=== PATIENT | female | born 1990 | race African-American/Black ===

== ENCOUNTER 2017-01-14 17:05 | Emergency (ER) | payer OTHER ==
[~2017-01-14] VITALS: Ht 154.9 cm; Wt 51.7 kg
[~2017-01-14 17:05] MED LIST: ALBU8.5H3 INH; FLUT1DIS3 IH
--- NOTE | 2017-01-14 17:47 | ED.ADGEN ---
Past History Past Medical History: Asthma Past Surgical History: Alcohol Use: None Drug Use: None Adult General Chief Complaint Chief Complaint " I bleeding again and having more pain.. and I don't feel the baby moving today..."..." I am due June 18.. I am 18 weeks by US .. the one I had last week at [facility].. I had two US here.. and one a [facility] and the one at [place].. for the pain and bleeding episodes.. " I just don't feel the baby moving....".." I ve been sick with the flu...." HPI HPI Patient is a 26 year old female who presents with above hx and complaints of vaginal bleeding and cramping. Pt. states bleeding is more spotting, less than a regular period. Pt. G 4, Term 3 by C sections. Has seen a OB at [place] in the past. No history of trauma. No history of travel. No history of bad food. No history of specific ill contacts other than her children who she got the influenza 2 weeks ago. Patient does still smoke marijuana. Patient has a history of asthma.. Life time sex partners x 2 . No history of STDs. Review of Systems Review of Systems Constitutional: Denies fever or chills [] Eyes: Denies change in visual acuity, redness, or eye pain [] HENT: Denies nasal congestion or sore throat [] Respiratory: Denies cough or shortness of breath [] Cardiovascular: No additional information not addressed in HPI [] GI: Complaints of lower abdominal pain and cramping, nausea,. Denies vomiting, bloody stools or diarrhea [] : Denies dysuria or hematuria. Complains of spotting Musculoskeletal: Denies back pain or joint pain [] Integument: Denies rash or skin lesions [] Neurologic: Denies headache, focal weakness or sensory changes [] Endocrine: Denies polyuria or polydipsia [] Family History Family History Noncontributory Current Medications Current Medications Current Medications Medications (Trade) Dose Ordered Sig/Clayton Start Time Stop Time Status Last Admin Dose Admin Lactated Ringer's (Iv Lactated Ringers) 1,000 ml @ 1,000 mls/hr Q1H 01/14/17 19:00 01/14/17 21:26 DC 01/14/17 19:33 1,000 MLS/HR Ondansetron HCl (Zofran) 4 mg 1X ONCE 01/14/17 19:00 01/14/17 19:01 DC 01/14/17 19:31 4 MG Allergies Allergies Allergies Coded Allergies Type Severity Reaction Last Updated Verified codeine Allergy Unknown Nausea and Vomiting 06/22/16 Yes Physical Exam Physical Exam Constitutional: Well developed, well nourished, mild emotional distress, non- toxic appearance. [] HENT: Normocephalic, atraumatic, bilateral external ears normal, oropharynx moist, no oral exudates, nose normal. [] Eyes: PERRLA, EOMI, conjunctiva normal, no discharge. [] Neck: Normal range of motion, no tenderness, supple, no stridor. [] Cardiovascular:Heart rate regular rhythm, no murmur [] Lungs & Thorax: Bilateral breath sounds equal with scattered wheezes auscultation [] Abdomen: Bowel sounds normal, soft, mild left lower quadrant tenderness, no masses, no pulsatile masses. Gravid. No rebound. Os is closed. No obvious bleeding. heart rate approximately 160. Skin: Warm, dry, no erythema, no rash. Tattoos. Back: No tenderness, no CVA tenderness. [] Extremities: No tenderness, no cyanosis, no clubbing, ROM intact, no edema. [] Neurologic: Alert and oriented X 3, normal motor function, normal sensory function, no focal deficits noted. [] Psychologic: Affect anxious, judgement normal, mood normal. [] Current Patient Data Vital Signs Vital Signs Date Time Temp Pulse Resp B/P Pulse Ox O2 Delivery O2 Flow Rate FiO2 01/14/17 20:10 95 20 106/66 99 Room Air 01/14/17 17:19 98.1 Lab Results Laboratory Tests Test 01/14/17 18:35 01/14/17 18:38 01/14/17 19:07 Urine Collection Type Unknown Urine Color Yellow Urine Clarity Hazy Urine pH 7.5 Urine Specific Crystal 1.020 Urine Protein Neg (NEG-TRACE) Urine Glucose (UA) Negmg/dL (NEG) Urine Ketones (Stick) 40mg/dL (NEG) Urine Blood Trace (NEG) Urine Nitrite Neg (NEG) Urine Bilirubin Neg (NEG) Urine Urobilinogen Dipstick 0.2mg/dL (0.2 mg/dL) Urine Leukocyte Esterase Neg (NEG) Urine RBC 0/HPF (0-2) Urine WBC Occ/HPF (0-4) Urine Squamous Epithelial Cells Occ/LPF Urine Amorphous Sediment Present/HPF Urine Bacteria Few/HPF (0-FEW) Urine Mucus Slight/LPF Urine Opiates Screen Neg (NEG) Urine Methadone Screen Neg (NEG) Urine Barbiturates Neg (NEG) Urine Phencyclidine Screen Neg (NEG) Urine Amphetamine/Methamphetamine Neg (NEG) Urine Benzodiazepines Screen Neg (NEG) Urine Cocaine Screen Neg (NEG) Urine Cannabinoids Screen Pos (NEG) Urine Ethyl Alcohol Neg (NEG) White Blood Count 8.9x10^3/uL (4.0-11.0) Red Blood Count 4.21x10^6/uL (3.50-5.40) Hemoglobin 12.4g/dL (12.0-15.5) Hematocrit 36.7% (36.0-47.0) Mean Corpuscular Volume 87fL (79-100) Mean Corpuscular Hemoglobin 29pg (25-35) Mean Corpuscular Hemoglobin Concent 34g/dL (31-37) Red Cell Distribution Width 13.3% (11.5-14.5) Platelet Count 295x10^3/uL (140-400) Neutrophils (%) (Auto) 56% (31-73) Lymphocytes (%) (Auto) 29% (24-48) Monocytes (%) (Auto) 9% (0-9) Eosinophils (%) (Auto) 4% (0-3) H Basophils (%) (Auto) 1% (0-3) Neutrophils # (Auto) 5.0x10^3uL (1.8-7.7) Lymphocytes # (Auto) 2.6x10^3/uL (1.0-4.8) Monocytes # (Auto) 0.8x10^3/uL (0.0-1.1) Eosinophils # (Auto) 0.4x10^3/uL (0.0-0.7) Basophils # (Auto) 0.1x10^3/uL (0.0-0.2) Prothrombin Time < 9.4SEC (9.4-11.4) L Prothrombin Time INR 0.9 (0.9-1.1) PTT 27SEC (23-33) Maternal Serum HCG Beta Subunit 40422nTN/mL (0-6) H Sodium Level 136mmol/L (136-145) Potassium Level 3.7mmol/L (3.5-5.1) Chloride Level 100mmol/L (98-107) Carbon Dioxide Level 28mmol/L (21-32) Anion Gap 8 (6-14) Blood Urea Nitrogen 7mg/dL (7-20) Creatinine 0.6mg/dL (0.6-1.0) Estimated GFR (Cockcroft-Gault) 145.1 Glucose Level 73mg/dL (70-99) Calcium Level 8.9mg/dL (8.5-10.1) Total Bilirubin 0.3mg/dL (0.2-1.0) Direct Bilirubin 0.1mg/dL (0.0-0.2) Aspartate Amino Transferase (AST) 17U/L (15-37) Alanine Aminotransferase (ALT) 24U/L (14-59) Alkaline Phosphatase 85U/L (46-116) Total Protein 7.4g/dL (6.4-8.2) Albumin 2.8g/dL (3.4-5.0) L Microbiology 01/14/17 Wet Prep - Final, Complete Microbiology 01/14/17 Wet Prep - Final, Complete EKG EKG [] Radiology/Procedures Radiology/Procedures Ultrasound shows a breech presentation of 17 week 3 day gestational age live IUP. No gross abnormalities appreciated. heart rate at approximately 162. Placenta is anterior. Amniotic fluid volume and appropriate. See formal report when available. [] Course & Med Decision Making Course & Med Decision Making Pertinent Labs and Imaging studies reviewed. (See chart for details) Still awaiting US with results and lab results. Tech. has not arrived yet. Lab advise GC and Chlamydia was canceled. - Lab Can not tell me who canceled the order- It was canceled under my name? Re -ordered 2056. Patient follow-up all labs that are pending. Patient return if any concerns. Patient continue pad counts. Patient encouraged follow-up with me patient encouraged to take vitamins. Patient must follow-up with her OB. [] Final Impression Final Impression 1. Threaten 2. Bacterial Vaginosis- + Clue cells 3. Blood Type B+ 4. IUP Problems: Dragon Disclaimer Claire Disclaimer This electronic medical record was generated, in whole or in part, using a voice recognition dictation system. SHORTY CESPEDES MD Jan 14, 2017 17:47
[2017-01-14] MEDS ORDERED: IV RINGERS SOLUTION,LACTATED 1,000 ML IV SCH (19:00)
[2017-01-14] MEDS ORDERED: ONDANSETRON PF 4 MG/2 ML VIAL. IV ONE (19:00)
[2017-01-14 19:34] LABS: BASO # 0.1 x10^3/uL (0.0-0.2); BASO % 1 % (0-3); EOS # 0.4 x10^3/uL (0.0-0.7); EOS % 4 % (0-3); HEMATOCRIT 36.7 % (36.0-47.0); HEMOGLOBIN 12.4 g/dL (12.0-15.5); LYMPH # 2.6 x10^3/uL (1.0-4.8); LYMPH % 29 % (24-48); MEAN CORPUSCULAR HEMOGLOBIN 29 pg (25-35); MEAN CORPUSCULAR HGB CONC 34 g/dL (31-37); MEAN CORPUSCULAR VOLUME 87 fL (79-100); MONO # 0.8 x10^3/uL (0.0-1.1); MONO % 9 % (0-9); NEUT % 56 % (31-73); PLATELET COUNT 295 x10^3/uL (140-400); RED BLOOD COUNT 4.21 x10^6/uL (3.50-5.40); RED CELL DISTRIBUTION WIDTH 13.3 % (11.5-14.5); WHITE BLOOD COUNT 8.9 x10^3/uL (4.0-11.0)
[2017-01-14 19:37] LABS: BILIRUBIN,URINE NEG (NEG); CLARITY,URINE HAZY; COLOR,URINE YELLOW; GLUCOSE,URINE NEG (NEG)
[2017-01-14 19:38] LABS: BACTERIA,URINE FEW /HPF (0-FEW); NITRITE,URINE NEG (NEG); RBC,URINE 0 /HPF (0-2); SQUAMOUS EPITHELIAL CELL,UR OCC /LPF; UROBILINOGEN,URINE 0.2 mg/dL (0.2 mg/dL); WBC,URINE OCC /HPF (0-4)
[2017-01-14 19:39] LABS: AMORPHOUS SEDIMENT,UR PRESENT /HPF
[2017-01-14 19:54] LABS: ALBUMIN 2.8 g/dL (3.4-5.0); CALCIUM 8.9 mg/dL (8.5-10.1); CREATININE 0.6 mg/dL (0.6-1.0); DIRECT BILIRUBIN 0.1 mg/dL (0.0-0.2); GFR 145.1; POTASSIUM 3.7 mmol/L (3.5-5.1); TOTAL BILIRUBIN 0.3 mg/dL (0.2-1.0); TOTAL PROTEIN 7.4 g/dL (6.4-8.2)
[2017-01-14 20:10] VITALS: BP 106/66
--- NOTE | 2017-01-14 20:45 | RAD ---
Ultrasound Ob limited Indication: Bleeding. There is a single live IUP approximately 17 weeks 3 days gestational age. Heart rate was recorded at 162 beats per minute. Trace fluid is noted in the cervix. The placenta is anterior. The amniotic fluid volume appears appropriate. No gross abnormalities are seen. The fetus is in a breech presentation. Impression: Single live IUP 17 weeks 3 days gestational age. No complicating features are detected. Electronically signed by: Cali Burton MD (Jan 14, 2017 20:44:26)
[2017-01-14 22:33] LABS: AMPHETAMINE/METHAMPHETAMINE NEG (NEG); BARBITURATES NEG (NEG); BENZODIAZEPINES NEG (NEG); CANNABINOIDS POS (NEG); COCAINE NEG (NEG); METHADONE NEG (NEG); OPIATES NEG (NEG); PHENCYCLIDINE NEG (NEG)
[2017-01-15 20:21] LABS: HCV ANTIBODY 0.1 s/co ratio (0.0-0.9); HEP A IGM ABDY Negative (Negative)
[2017-01-16 15:08] LABS: CHLAMYDIA PROBE Negative (Negative)
== END 2017-01-14 21:22 | disposition home or self-care (01) ==
LOC: ER 17:05
DX: O20.0 Threatened abortion (principal); N76.0 Acute vaginitis; J45.909 Unspecified asthma, uncomplicated; F12.10 Cannabis abuse, uncomplicated; Z3A.17 17 weeks gestation of pregnancy; Z88.6 Allergy status to analgesic agent
CPT/HCPCS: 36415; 76815; 80048; 80074; 80076; 80305; 81001; 84443; 84702; 85027; 85610; 85730; 86703; 86900; 86901; 87491; 87591; 96361; 96374; 99285; J2405; J7120; Q0111; G0481

== ENCOUNTER 2018-03-04 09:34 | Emergency (ER) | payer SELFPAY ==
[~2018-03-04] VITALS: Ht 154.9 cm; Wt 59.5 kg
[~2018-03-04 09:34] MED LIST changes: -ALBU8.5H3 INH; +ALBU8.5H8 INH
[2018-03-04] MEDS ORDERED: IPRATRPIUM/ALBUTEROL 0.5/2.5MG 3 ML NEBU. ONE (09:40)
[2018-03-04] MEDS ORDERED: IV NORMAL SALINE 1,000ML 1,000 ML IV SCH (09:43)
[2018-03-04] MEDS ORDERED: 0.9 % SODIUM CHLORIDE 10 ML DISP.SYRIN. IV ONE (09:45)
--- NOTE | 2018-03-04 09:54 | PHYS DOC ---
Past History Past Medical History: Asthma Past Surgical History: Alcohol Use: None Drug Use: None Adult General Chief Complaint Chief Complaint: SHORTNESS OF BREATH HPI HPI 27-year-old female patient with history of asthma states she has intermittent episodes of shortness of breath dry cough for the last 1 week that gradually getting worse with productive cough. Patient states she had posttussive nausea and vomiting and took 8 times inhaler today without improvement of her condition. Patient denies fever and chills, sick contact, diarrhea and urinary symptom, . Patient complaining of chest tightness and soreness during episodes of cough. Review of Systems Review of Systems Constitutional: Denies fever or chills [] Eyes: Denies change in visual acuity, redness, or eye pain [] HENT: Denies nasal congestion or sore throat [] Respiratory: Reports cough and shortness of breath [] Cardiovascular: No additional information not addressed in HPI [] GI: Denies abdominal pain, bloody stools or diarrhea , report nausea and vomiting[] : Denies dysuria or hematuria [] Musculoskeletal: Denies back pain or joint pain [] Integument: Denies rash or skin lesions [] Neurologic: Denies headache, focal weakness or sensory changes [] Endocrine: Denies polyuria or polydipsia [] All other systems were reviewed and found to be within normal limits, except as documented in this note. Current Medications Current Medications Current Medications Medications (Trade) Dose Ordered Sig/Clayton Start Time Stop Time Status Last Admin Dose Admin Albuterol/ Ipratropium (Duoneb) 3 ml 1X ONCE 03/04/18 10:10 03/04/18 10:11 Methylprednisolone Sodium Succinate (SOLU-Medrol 125MG VIAL) 125 mg 1X ONCE 03/04/18 09:45 03/04/18 09:46 UNV Sodium Chloride 1,000 ml @ 1,000 mls/hr Q1H 03/04/18 09:43 03/04/18 10:42 Sodium Chloride (Normal Saline Flush) 10 ml 1X ONCE 03/04/18 09:45 03/04/18 09:46 Allergies Allergies Allergies Coded Allergies Type Severity Reaction Last Updated Verified codeine Allergy Unknown Nausea and Vomiting 06/22/16 Yes Physical Exam Physical Exam Constitutional: Well developed, well nourished, moderate distress, non-toxic appearance. [] HENT: Normocephalic, atraumatic, bilateral external ears normal, oropharynx moist, no oral exudates, nose normal. [] Eyes: PERRLA, EOMI, conjunctiva normal, no discharge. [] Neck: Normal range of motion, no tenderness, supple, no stridor. [] Cardiovascular:Tachycardia, no murmur [] Lungs & Thorax: Mild respiratory distress with intercostal retraction and tachypnea, decrease of air movement in bilateral lung with wheezing Abdomen: Bowel sounds normal, soft, no tenderness, no masses, no pulsatile masses. [] Skin: Warm, dry, no erythema, no rash. [] Back: No tenderness, no CVA tenderness. [] Extremities: No tenderness, no cyanosis, no clubbing, ROM intact, no edema. [] Neurologic: Alert and oriented X 3, normal motor function, normal sensory function, no focal deficits noted. [] Psychologic: Affect normal, judgement normal, mood normal. [] EKG EKG [] Radiology/Procedures Radiology/Procedures [] [place] [address] IMAGING REPORT Signed PATIENT: KAVIN MOORE ACCOUNT: [id number] : 1990 LOCATION: ER AGE: 27 SEX: F EXAM STATUS: REG ER ORD. PHYSICIAN: SCOT HOFFMAN MD REASON: short of breath PROCEDURE: CHEST PA & LATERAL CHEST PA LATERAL History: SHORT OF BREATH Comparison: Two-view chest January 13, 2016. Findings: The cardiomediastinal silhouette is normal. Pulmonary vasculature is normal. The lungs are clear. No pleural effusion or pneumothorax is seen. There is no acute bone abnormality. IMPRESSION: No acute cardiopulmonary process. Electronically signed by: Jose Roberto Espinoza MD (03/04/2018 10:14 AM) [id number] DICTATED AND SIGNED BY: JOSE ROBERTO ESPINOZA MD DATE: 03/04/18 1011 CC: SCOT HOFFMAN MD; JR GARCIA Course & Med Decision Making Course & Med Decision Making Pertinent Labs and Imaging studies reviewed. (See chart for details) Evaluation of patient in ER showed 27-year-old female patient with history of asthma presented to ER via asthma exacerbation with acute distress. She treated with IV fluid, DuoNeb and Solu-Medrol and felt better. Labs and chest x-ray was unremarkable. Patient does not have a nebulizer at home but has prescription for nebulizer and instructed to get a nebulizer. She instructed to follow up with her primary care physician and return to ER if not getting better. [] Dragon Disclaimer Dragon Disclaimer This electronic medical record was generated, in whole or in part, using a voice recognition dictation system. Departure Departure: Impression: Primary Impression: Acute asthma exacerbation Disposition: HOME, SELF-CARE Condition: IMPROVED Referrals: JR GARCIA (PCP) Patient Instructions: Asthma Attacks, Prevention, Asthma, Acute Bronchospasm Additional Instructions: Drink plenty of liquids Follow-up with your primary care physician in 3-5 days Return to ER if not getting better Scripts Methylprednisolone (MEDROL) 4 Mg Tab.ds.pk 1 PKG PO UD, #1 PKG Prov: SCOT HOFFMAN MD 03/04/18 Albuterol Sulfate (ALBUTEROL SULFATE NEB SOLN ) 2.5 Mg/3 Ml Vial.neb 1 VIAL NEB PRN Q4HRS, #25 VIAL Prov: SCOT HOFFMAN MD 03/04/18 Albuterol Sulfate (PROAIR HFA INHALER) 8.5 Gm Hfa.aer.ad 2 PUFF INH PRN Q6HRS Y for SHORTNESS OF BREATH, #1 INHALER 0 Refills Prov: SCOT HOFFMAN MD 03/04/18 SCOT HOFFMAN MD Mar 04, 2018 09:53
[2018-03-04 09:59] LABS: BASO # 0.1 x10^3/uL (0.0-0.2); BASO % 2 % (0-3); EOS # 1.2 x10^3/uL (0.0-0.7); EOS % 16 % (0-3); HEMATOCRIT 43.9 % (36.0-47.0); HEMOGLOBIN 15.3 g/dL (12.0-15.5); LYMPH # 2.8 x10^3/uL (1.0-4.8); LYMPH % 38 % (24-48); MEAN CORPUSCULAR HEMOGLOBIN 30 pg (25-35); MEAN CORPUSCULAR HGB CONC 35 g/dL (31-37); MEAN CORPUSCULAR VOLUME 85 fL (79-100); MONO # 0.5 x10^3/uL (0.0-1.1); MONO % 6 % (0-9); NEUT # 2.7 x10^3uL (1.8-7.7); NEUT % 38 % (31-73); PLATELET COUNT 342 x10^3/uL (140-400); RED BLOOD COUNT 5.18 x10^6/uL (3.50-5.40); RED CELL DISTRIBUTION WIDTH 13.4 % (11.5-14.5); WHITE BLOOD COUNT 7.3 x10^3/uL (4.0-11.0)
[2018-03-04] MEDS ORDERED: methylPREDNISolone SOD SUCC PF 125 MG/2 ML VIAL. IV ONE (10:10)
[2018-03-04] MEDS ORDERED: IPRATRPIUM/ALBUTEROL 0.5/2.5MG 3 ML NEBU. NEB ONE (10:10)
[2018-03-04 10:12] LABS: ALBUMIN 3.9 g/dL (3.4-5.0); CALCIUM 9.1 mg/dL (8.5-10.1); CREATININE 0.8 mg/dL (0.6-1.0); GFR 103.3; POTASSIUM 3.7 mmol/L (3.5-5.1); TOTAL BILIRUBIN 0.6 mg/dL (0.2-1.0); TOTAL PROTEIN 7.7 g/dL (6.4-8.2)
--- NOTE | 2018-03-04 10:17 | RAD ---
CHEST PA LATERAL History: SHORT OF BREATH Comparison: Two-view chest January 13, 2016. Findings: The cardiomediastinal silhouette is normal. Pulmonary vasculature is normal. The lungs are clear. No pleural effusion or pneumothorax is seen. There is no acute bone abnormality. IMPRESSION: No acute cardiopulmonary process. Electronically signed by: Jose Roberto Espinoza MD (03/04/2018 10:14 AM) [id number]
[2018-03-04] MEDS ORDERED: METH4TAB2 PO (10:35)
[2018-03-04] MEDS ORDERED: ALBU8.5H8 INH (10:35)
[2018-03-04] MEDS ORDERED: ALBU2.5V5 NEB (10:35)
[2018-03-04 10:45] VITALS: BP 118/75
== END 2018-03-04 10:45 | disposition home or self-care (01) ==
LOC: ER 09:34
DX: J45.901 Unspecified asthma with (acute) exacerbation (principal); R11.2 Nausea with vomiting, unspecified; Z88.5 Allergy status to narcotic agent
CPT/HCPCS: 36415; 71046; 80053; 85025; 94640; 96361; 96374; 99285; J2930; J7620; J7030

== ENCOUNTER 2019-07-12 04:12 | Emergency (ER) | payer MEDICAID ==
[~2019-07-12] VITALS: Ht 154.9 cm; Wt 56.7 kg
[~2019-07-12 04:12] MED LIST changes: +ALBU2.5V5 NEB; +ALBU2.5V8 INH; -ALBU8.5H8 INH; +METH4TAB2 PO
--- NOTE | 2019-07-12 04:16 | ED.ADGEN ---
Past History Past Medical History: Asthma, Sinusitis Past Surgical History: , Tubal ligation Alcohol Use: None Drug Use: Marijuana Adult General Chief Complaint Chief Complaint '" My sinus is bad to night... I was to get surgery... they had me use Flonase.. but it not really helping...".. My nasal drainage make my asthma get worse..." HPI HPI Patient is a 29 year old FEMALE who presents with above hx and complaints sinusitis and asthma exacerbation. Patient states she was due to get surgery of her sinuses but her primary care wonder try a course of Flonase. She reports this has not been helpful for her nasal congestion. Patient does have seasonal allergy exacerbations. Patient states many times the sinus complaints start before her asthma exacerbation. No history of travel or specific ill contacts. No history immunosuppression Review of Systems Review of Systems Constitutional: Denies fever or chills [] Eyes: Denies change in visual acuity, redness, or eye pain [] HENT: Complaints of nasal congestion and sore throat [] Respiratory: Complaints of wheezing Cardiovascular: No additional information not addressed in HPI [] GI: Denies abdominal pain, nausea, vomiting, bloody stools or diarrhea [] : Denies dysuria or hematuria [] Musculoskeletal: Denies back pain or joint pain [] Integument: Denies rash or skin lesions [] Neurologic: Denies headache, focal weakness or sensory changes [] Endocrine: Denies polyuria or polydipsia [] All other systems were reviewed and found to be within normal limits, except as documented in this note. Family History Family History Noncontributory Current Medications Current Medications Current Medications Medications (Trade) Dose Ordered Sig/Clayton Start Time Stop Time Status Last Admin Dose Admin Albuterol Sulfate (Ventolin Hfa Inhaler) 2 puff 1X ONCE 07/12/19 05:00 07/12/19 05:01 DC 07/12/19 04:31 2 PUFF Amoxicillin (Amoxil) 500 mg 1X ONCE 07/12/19 06:00 07/12/19 06:01 07/12/19 05:38 500 MG Phenylephrine HCl (Wil-Synephrine 1% Nasal) 2 drop 1X ONCE 07/12/19 05:00 07/12/19 05:01 DC 07/12/19 04:43 2 DROP Prednisone (Prednisone) 50 mg 1X ONCE 07/12/19 05:00 07/12/19 05:01 DC 07/12/19 04:43 50 MG Allergies Allergies Allergies Coded Allergies Type Severity Reaction Last Updated Verified codeine Allergy Unknown Nausea and Vomiting 06/22/16 Yes Physical Exam Physical Exam Constitutional: Well developed, well nourished, moderate acute distress, non- toxic appearance. [] HENT: Normocephalic, atraumatic, bilateral external ears normal, oropharynx moist, postnasal drainage with some mild erythema, no oral exudates, nose rhinorrhea and swollen turbinates Eyes: PERRLA, EOMI, conjunctiva normal, no discharge. [] Neck: Normal range of motion, no tenderness, supple, no stridor. [] Cardiovascular:Heart rate regular rhythm, no murmur [] Lungs & Thorax: Bilateral breath sounds with apex with scattered wheezes on auscultation [] Abdomen: Bowel sounds normal, soft, no tenderness, no masses, no pulsatile masses. [] Skin: Warm, dry, no erythema, no rash. [] Back: No tenderness, no CVA tenderness. [] Extremities: No tenderness, no cyanosis, no clubbing, ROM intact, no edema. [] Neurologic: Alert and oriented X 3, normal motor function, normal sensory function, no focal deficits noted. [] Psychologic: Affect normal, judgement normal, mood normal. [] Current Patient Data Vital Signs Vital Signs Date Time Temp Pulse Resp B/P (MAP) Pulse Ox O2 Delivery O2 Flow Rate FiO2 07/12/19 04:29 98.3 91 18 98 Room Air EKG EKG [] Radiology/Procedures Radiology/Procedures [][address] [address] IMAGING REPORT Signed PATIENT: KAVIN MOORE RACCOUNT: [id number] : 1990 LOCATION: ER AGE: 29 SEX: F EXAM STATUS: REG ER ORD. PHYSICIAN: SHORTY CESPEDES MD REASON: SINUS PAIN, DIFFICULTY BREATHING.HX POLYPS PROCEDURE: CT MAXILLOFACIAL WO CONTRAST CT maxillofacial without contrast: Reason for examination: Sinus pain. Difficulty breathing. History of polyps. Helical images were obtained through the maxillofacial structures with no contrast administered. Reconstruction was performed in sagittal and coronal planes. Exposure: One or more of the following individualized dose reduction techniques were utilized for this examination: 1. Automated exposure control 2. Adjustment of the mA and/or kV according to patient size 3. Use of iterative reconstruction technique. The paranasal sinuses show pansinusitis with near complete opacification of all the paranasal sinuses. Bony briceño of the sinuses appear to be intact. There is mild nasal septal deviation to the left. There appears to be edema of the nasal turbinates with poor aeration in the nasal cavity. No abnormalities of seen at the orbital structures. No acute facial bone abnormalities are seen. No abnormalities evident at the mandible or temporomandibular joints. Mastoid air cells are clear. IMPRESSION: Pansinusitis with near complete opacification of all paranasal sinuses. No abnormalities of the sinus briceño. Edematous nasal turbinates with poor aeration in the nasal cavity. Electronically signed by: Len Gonzales MD (07/12/2019 5:32 AM) [facility] DICTATED AND SIGNED BY: LEN GONZALES MD DATE: 07/12/19 0532 CC: SHORTY CESPEDES MD; JR GARCIA ~ Course & Med Decision Making Course & Med Decision Making Pertinent Labs and Imaging studies reviewed. (See chart for details) Use Flonase 2 sprays each nasal at night. Use Wil-Synephrine spray at night. Use normal saline rinses at least 4 times a day and as needed. Take amoxicillin 500 mg 3 times a day for the next 14 days. May need a renewal of prescription because of the pansinusitis. Follow-up primary care. Follow-up with ENT. Return if any concerns. Use MDI 2 puffs 4 times a day. Take prednisone 50 mg a day for 5 days. [] Final Impression Final Impression 1. Asthma exacerbation 2. Duque Sinusitis Allergic[/ Infectious] Dragon Disclaimer Dragon Disclaimer This electronic medical record was generated, in whole or in part, using a voice recognition dictation system. Dragon Disclaimer This chart was dictated in whole or in part using Voice Recognition software in a busy, high-work load, and often noisy Emergency Department environment. It may contain unintended and wholly unrecognized errors or omissions. SHORTY CESPEDES MD Jul 12, 2019 04:16
[2019-07-12] MEDS ORDERED: PRED50TA PO (04:27)
[2019-07-12] MEDS ORDERED: FLUT9.9S NS (04:27)
[2019-07-12] MEDS ORDERED: PHEN15SP11 NS (04:27)
[2019-07-12 04:29] VITALS: BP 125/70
[2019-07-12] MEDS ORDERED: ALBUTEROL SULFATE 8GM INHALER. INH ONE (05:00)
[2019-07-12] MEDS ORDERED: PHENYLEPHRINE 1% NASAL DROP 30ML BOTTLE. NS ONE (05:00)
[2019-07-12] MEDS ORDERED: predniSONE 10 MG TABLET PO ONE (05:00)
[2019-07-12] MEDS ORDERED: AMOX-260 PO (05:33)
--- NOTE | 2019-07-12 05:35 | RAD ---
CT maxillofacial without contrast: Reason for examination: Sinus pain. Difficulty breathing. History of polyps. Helical images were obtained through the maxillofacial structures with no contrast administered. Reconstruction was performed in sagittal and coronal planes. Exposure: One or more of the following individualized dose reduction techniques were utilized for this examination: 1. Automated exposure control 2. Adjustment of the mA and/or kV according to patient size 3. Use of iterative reconstruction technique. The paranasal sinuses show pansinusitis with near complete opacification of all the paranasal sinuses. Bony briceño of the sinuses appear to be intact. There is mild nasal septal deviation to the left. There appears to be edema of the nasal turbinates with poor aeration in the nasal cavity. No abnormalities of seen at the orbital structures. No acute facial bone abnormalities are seen. No abnormalities evident at the mandible or temporomandibular joints. Mastoid air cells are clear. IMPRESSION: Pansinusitis with near complete opacification of all paranasal sinuses. No abnormalities of the sinus briceño. Edematous nasal turbinates with poor aeration in the nasal cavity. Electronically signed by: Lindsey Gross MD (07/12/2019 5:32 AM) [facility]
[2019-07-12] MEDS ORDERED: AMOXICILLIN 250 MG CAPSULE PO ONE (06:00)
== END 2019-07-12 05:40 | disposition home or self-care (01) ==
LOC: ER 04:12
DX: J45.901 Unspecified asthma with (acute) exacerbation (principal); J32.4 Chronic pansinusitis; Z88.5 Allergy status to narcotic agent
CPT/HCPCS: 70486; 94640; 99284; J7512; J7613

== ENCOUNTER 2019-10-14 08:41 | Emergency (ER) | payer MEDICAID ==
[~2019-10-14] VITALS: Ht 154.9 cm; Wt 58.1 kg
[~2019-10-14 08:41] MED LIST changes: +AMOX-260 PO; +FLUT9.9S NS; +PHEN15SP11 NS; +PRED50TA PO
--- NOTE | 2019-10-14 09:00 | PHYS DOC ---
Past History Past Medical History: Asthma, Sinusitis Past Surgical History: , Tubal ligation Alcohol Use: None Drug Use: Marijuana Adult General Chief Complaint Chief Complaint: SHORTNESS OF BREATH HPI HPI Patient is a 29-year-old female who presents to the emergency department for evaluation. Patient states that she has had some increasing trouble breathing over the past 12 hours, along with some pain in her throat. She feels that the tightness is in her throat, and she has had a cough which is mostly nonproductive. Coughing seems to hurt her throat. She has not had any fevers or chills. She has had nasal congestion. She has a history of asthma but states that her symptoms do not feel similar to her asthma and she is not currently wheezing. There are no alleviating or exacerbating factors to her symptoms otherwise. Review of Systems Review of Systems Constitutional: Denies fever or chills [] Eyes: Denies change in visual acuity, redness, or eye pain [] HENT: Reports nasal congestion and sore throat. Denies otalgia.[] Respiratory: Reports nonproductive cough and shortness of breath.[] GI: Denies abdominal pain, nausea, vomiting, bloody stools or diarrhea [] : Denies dysuria or hematuria [] Musculoskeletal: Denies back pain or joint pain [] Integument: Denies rash or skin lesions [] Neurologic: Denies headache, focal weakness or sensory changes [] Endocrine: Denies polyuria or polydipsia [] All other systems were reviewed and found to be within normal limits, except as documented in this note. Current Medications Current Medications Current Medications Medications (Trade) Dose Ordered Sig/Clayton Start Time Stop Time Status Last Admin Dose Admin Prednisone (Prednisone) 60 mg 1X ONCE 10/14/19 09:15 10/14/19 09:16 Allergies Allergies Allergies Coded Allergies Type Severity Reaction Last Updated Verified codeine Allergy Unknown Nausea and Vomiting 06/22/16 Yes Physical Exam Physical Exam PHYSICAL EXAM: CONSTITUTIONAL: Well developed, well nourished HEAD: normocephalic, atraumatic EENT: PERRL, EOMI. Conjunctivae normal color, sclerae non-icteric; moist mucous membranes. The oropharynx is erythematous, there is mild tonsillar enlargement bilaterally, without any uvular edema or deviation. There is mildly tender submandibular lymphadenopathy. The larynx is nontender. NECK: Supple, non-tender; no meningismus. There is no stridor. Voice is normal. LUNGS: Lungs CTA, breathing even and unlabored. Normal air movement. There is no wheezing present. HEART: Regular rate and rhythm, no murmur CHEST: No deformity; non-tender ABDOMEN: The abdomen is soft, and non-tender, no masses or bruits. EXTREM: Normal ROM; no deformity, no calf tenderness. Normal pulses palpable in all extremities. There is no pedal edema. SKIN: No rash; no diaphoresis NEURO: Alert; normal speech and cognition; CN's grossly intact; strength grossly intact without focal deficit. BACK: No CVA TTP. EKG EKG [] Radiology/Procedures Radiology/Procedures PROCEDURE: CHEST PA & LATERAL Examination: 2 views of the chest and 2 views of the soft tissue neck HISTORY: History of cough, neck pain, throat pain COMPARISON: None available. FINDINGS: The cardiomediastinal silhouette grossly appears unremarkable. There is no acute infiltrate or visualized pneumothorax. The upper airway appears patent. The visualized epiglottis appears unremarkable. IMPRESSION: No acute findings.[] Course & Med Decision Making Course & Med Decision Making Pertinent Labs and Imaging studies reviewed. (See chart for details) []Rapid strep and flu are negative. 10:20 AM: The patient's condition remains stable. She is feeling somewhat better. I discussed test results, expectant management, the need for close follow-up, and return precautions. Dragon Disclaimer Dragon Disclaimer This electronic medical record was generated, in whole or in part, using a voice recognition dictation system. Departure Departure: Impression: Primary Impression: Pharyngitis Additional Impression: Cough Disposition: 01 HOME, SELF-CARE Condition: STABLE Referrals: JR GARCIA (PCP) Patient Instructions: Cough, Adult, Viral Pharyngitis Scripts Benzonatate (TESSALON PERLE) 100 Mg Capsule 200 MG PO TID PRN for COUGH, #20 CAP Prov: AMPARO MCNALLY MD 10/14/19 Prednisone (PREDNISONE) 20 Mg Tablet 40 MG PO DAILY for - for 4 Days, #8 TAB Begin 10/14/19 Prov: AMPARO MCNALLY MD 10/14/19 Problem Qualifiers AMPARO MCNALLY MD Oct 14, 2019 09:00
[2019-10-14] MEDS ORDERED: predniSONE 20 MG TABLET PO ONE (09:15)
[2019-10-14 09:30] VITALS: BP 116/86
--- NOTE | 2019-10-14 09:31 | RAD ---
Examination: 2 views of the chest and 2 views of the soft tissue neck HISTORY: History of cough, neck pain, throat pain COMPARISON: None available. FINDINGS: The cardiomediastinal silhouette grossly appears unremarkable. There is no acute infiltrate or visualized pneumothorax. The upper airway appears patent. The visualized epiglottis appears unremarkable. IMPRESSION: No acute findings. Electronically signed by: Juan Antonio Haney MD (10/14/2019 9:29 AM) [id number]
[2019-10-14 10:05] LABS: INFLUENZA A PATIENT NEGATIVE (NEGATIVE); INFLUENZA B PATIENT NEGATIVE (NEGATIVE)
[2019-10-14] MEDS ORDERED: PRED20TA PO (10:24)
[2019-10-14] MEDS ORDERED: BENZ100C PO (10:24)
== END 2019-10-14 10:32 | disposition home or self-care (01) ==
LOC: ER 08:41
DX: J02.9 Acute pharyngitis, unspecified (principal); J45.909 Unspecified asthma, uncomplicated; Z88.5 Allergy status to narcotic agent
CPT/HCPCS: 70360; 71046; 87070; 87804; 87880; 99285; J7512

== ENCOUNTER 2020-07-05 10:40 | Emergency (ER) | payer MEDICAID ==
[~2020-07-05] VITALS: Ht 154.9 cm; Wt 56.8 kg
[~2020-07-05 10:40] MED LIST changes: +BENZ100C PO; +PRED20TA PO
[2020-07-05] MEDS ORDERED: PRED20TA PO (11:04)
--- NOTE | 2020-07-05 11:06 | PHYS DOC ---
Past History Past Medical History: Anxiety, Asthma, Bipolar Past Surgical History: , Tubal ligation Alcohol Use: None Drug Use: Marijuana Adult General Chief Complaint Chief Complaint: ALLERGIC REACTION HPI HPI Patient is a 30-year-old female who presents with bilateral lower eyelid swelling. Onset was within the past 24 hours. Patient denies any known inciting event or trauma. Patient reports this is happened numerous times in her lifetime and has been self-limiting, reports this is the worse it has however gotten prompting her arrival to our ER for evaluation today. Patient reports strong family history of autoimmune diseases. Denies any recent febrile illness, viral illness, COVID-19 exposure, or other concerning signs or symptoms of systemic disease. Review of Systems Review of Systems Fourteen body systems of review of systems have been reviewed. See HPI for pertinent positives and negative responses, other eyboah all other systems are negative, non-pertinent or non-contributory Allergies Allergies Allergies Coded Allergies Type Severity Reaction Last Updated Verified codeine Allergy Unknown Nausea and Vomiting 06/22/16 Yes Physical Exam Physical Exam Constitutional: Well developed, well nourished, no acute distress, non-toxic appearance. HENT: Normocephalic, atraumatic, bilateral external ears normal, oropharynx [address], no oral exudates, nose normal. Eyes: PERRLA, EOMI, conjunctiva normal, no discharge. No chemosis (conjunctival edema), proptosis pain with eye movement, ophthalmoplegia, decreased visual acuity Neck: Normal range of motion, no tenderness, supple, no stridor. Cardiovascular: Heart rate regular, sinus rhythm, no murmurs rubs or gallops Lungs & Thorax: Bilateral breath sounds clear to auscultation Abdomen: Bowel sounds normal, soft, no tenderness, no masses, no pulsatile masses. Nonsurgical abdomen, no peritoneal signs Skin: Warm, dry, no erythema, no rash. Back: No tenderness, no CVA tenderness. Extremities: No tenderness, no cyanosis, no clubbing, ROM intact, no edema. Neurologic: Alert and oriented X 3, grossly normal motor & sensory function, no focal deficits noted. Psychologic: Affect normal, judgement normal, mood normal. Current Patient Data Vital Signs Vital Signs Date Time Temp Pulse Resp B/P (MAP) Pulse Ox O2 Delivery O2 Flow Rate FiO2 07/05/20 11:07 98.2 79 16 127/80 (96) 99 Room Air EKG EKG [] Radiology/Procedures Radiology/Procedures [] Course & Med Decision Making Course & Med Decision Making Airway breathing and presenting vital signs on remarkable Comprehensive history and physical exam obtained Discussed no clinical indication for further diagnostic work-up or intervention in ER setting Discussed most likely diagnosis of allergic reaction versus autoimmune phenomenon versus less likely diagnoses such as periorbital cellulitis among other more serious causes of patient's periorbital swelling Joint decision to discharge home with prednisone burst and close PCP follow-up in upcoming 1 to 4 days for further reevaluation and recommendation for further autoimmune work-up given patient's strong family history and clinical findings today Discussed this might be an acute presentation of more serious pathology, especially because this arose in last 12 hours. Strict return precautions were discussed, patient reported good understanding of these. All questions and concerns addressed Ultimately, patient discharged home in stable condition Dragon Disclaimer Dragon Disclaimer This electronic medical record was generated, in whole or in part, using a voice recognition dictation system. Departure Departure: Impression: Primary Impression: Allergic reaction Additional Impressions: Swelling of left lower eyelid Swelling of right lower eyelid Disposition: 01 HOME/RESIDENCE PRIOR TO ADM Condition: STABLE Referrals: JR GARCIA (PCP) Additional Instructions: You have been evaluated in the Emergency Department today for your allergic reaction. You have been given steroids for anti-inflammatory and symptomatic relief purp oses Please follow-up with your primary care physician. As advised, I would recommend you get worked up in outpatient setting given your strong family history of autoimmune illnesses Return to the Emergency Department if you experience difficulty breathing or swallowing, recurrent vomiting, rashes, lip/mouth/tongue swelling, persistent fevers or for any other concerning symptoms. It was a pleasure taking care of you today at [facility] ER and we hope you get better soon! Scripts Prednisone (PREDNISONE) 20 Mg Tablet 40 MG PO DAILY for allergic rxn for 5 Days, #10 TAB Prov: AKASH APONTE DO 07/05/20 Justification of Admission: Justification of Admission: Justification of Admission Dx: N/A Problem Qualifiers AKASH APONTE DO Jul 05, 2020 11:06
[2020-07-05 11:07] VITALS: BP 127/80
== END 2020-07-05 11:15 | disposition home or self-care (01) ==
LOC: ER 10:40
DX: T78.40XA Allergy, unspecified, initial encounter (principal); H02.845 Edema of left lower eyelid; H02.844 Edema of left upper eyelid; F41.9 Anxiety disorder, unspecified; J45.909 Unspecified asthma, uncomplicated; F31.9 Bipolar disorder, unspecified; Z88.5 Allergy status to narcotic agent; X58.XXXA Exposure to other specified factors, initial encounter
CPT/HCPCS: 99283

== ENCOUNTER 2020-10-10 10:05 | Emergency (ER) | payer MEDICAID ==
[~2020-10-10] VITALS: Ht 154.9 cm; Wt 56.6 kg
[2020-10-10] MEDS ORDERED: CETIRIZINE HCL 10 MG TABLET PO ONE (10:39)
[2020-10-10] MEDS ORDERED: PRED20TA PO (10:40)
[2020-10-10] MEDS ORDERED: CETI10TA74 PO (10:40)
--- NOTE | 2020-10-10 10:40 | PHYS DOC ---
Past History Past Medical History: Anxiety, Asthma Past Surgical History: No Surgical History Alcohol Use: None Drug Use: Marijuana Adult General Chief Complaint Chief Complaint: SKIN RASH/ABSCESS [facility] HPI Patient is a 30-year-old female who presents for allergic reaction. She has long history of being " allergic to everything" and has been previously established with an marble mechanic helper to receive routine allergy shots. She has never experienced any hospitalizations or anaphylaxis from prior allergic reactions but does admit she has experienced periorbital edema and shortness of breath with certain exposures. She reports she is allergic to a long list of environmental allergens, most of the time it is unknown what allergen she has been exposed to which causes her symptoms. Patient reports experiencing a similar episode yesterday, she was exposed to an unknown allergen while outside causing her to have classic full body rash which is slowly been worsening. She attempted to self medicate yesterday with Benadryl, admits to taking a total of x6 25 mg Benadryl without significant relief so when she woke up today, she presented to our facility for evaluation. Of note, she has not been seen in over 1 year by her marble mechanic helper as she was frustrated with one of the nursing personnel at said marble mechanic helper facility and decided not to go back this year, she subsequently did not get her annual allergy shot Review of Systems Review of Systems Fourteen body systems of review of systems have been reviewed. See HPI for pertinent positives and negative responses, other yeboah all other systems are negative, non-pertinent or non-contributory Allergies Allergies Allergies Coded Allergies Type Severity Reaction Last Updated Verified codeine Allergy Unknown Nausea and Vomiting 06/22/16 Yes Physical Exam Physical Exam Constitutional: Well developed, well nourished, no acute distress, non-toxic appearance. HENT: Normocephalic, atraumatic, bilateral external ears normal, oropharynx moist, airway patent, no oral exudates, nose normal. Eyes: PERRLA, EOMI, conjunctiva normal, no discharge. Neck: Normal range of motion, no tenderness, supple, no stridor. Cardiovascular: Heart rate regular, sinus rhythm, no murmurs rubs or gallops Lungs & Thorax: Bilateral breath sounds clear to auscultation Abdomen: Bowel sounds normal, soft, no tenderness, no masses, no pulsatile jared s. Nonsurgical abdomen, no peritoneal signs Skin: Warm, dry, no erythema, full body pruritic rash sparing oropharyngeal area in addition to palms and soles, mildly raised, consistent with typical allergic reaction with hives Back: No tenderness, no CVA tenderness. Extremities: No tenderness, no cyanosis, no clubbing, ROM intact, no edema. Neurologic: Alert and oriented X 3, grossly normal motor & sensory function, no focal deficits noted. Psychologic: Affect normal, judgement normal, mood normal. Current Patient Data Vital Signs Vital Signs Date Time Temp Pulse Resp B/P (MAP) Pulse Ox O2 Delivery O2 Flow Rate FiO2 10/10/20 10:15 97.9 92 16 143/88 (106) 97 EKG EKG [] Radiology/Procedures Radiology/Procedures [] Heart Score Risk Factors: Risk Factors: DM, Current or recent (<one month) smoker, HTN, HLP, family history of CAD, obesity. Risk Scores: Risk Factors: DM, Current or recent (<one month) smoker, HTN, HLP, family history of CAD, obesity. Course & Med Decision Making Course & Med Decision Making ABCs nonconcerning, patient nontoxic-appearing in no acute distress. Ongoing pruritus but no other pain or concern for potential airway compromise. Discussed most likely diagnosis of allergic reaction to unknown environmental allergen. Patient responded well to Zyrtec, famotidine and prednisone administered in ER. Given her well appearance, decision was made to discharge home with continued Zyrtec and short-term prednisone burst in outpatient setting with close PCP follow-up and recommendations to reestablish with her marble mechanic helper for routine care. Strict return precautions were discussed with good understanding by patient, all questions and concerns addressed prior to ER departure in improved condition Claire Disclaimer Claire Disclaimer This electronic medical record was generated, in whole or in part, using a voice recognition dictation system. Departure Departure: Impression: Primary Impression: Allergic reaction Disposition: 01 DC HOME SELF CARE/HOMELESS Condition: IMPROVED Referrals: JR GARCIA (PCP) Additional Instructions: As discussed prior to ER departure, please call your primary care physician first thing tomorrow to schedule outpatient follow-up in upcoming 1 to 10 days after ER departure As discussed, you would benefit from reestablishing with your prior marble mechanic helper; or, or you should establish with a new marble mechanic helper to ensure continuity of care and to ensure symptomatic resolution and decrease recurrence rates Please take prescribed Zyrtec and steroid burst as prescribed to completion If any concerning signs or symptoms present prior to outpatient follow-up please do not hesitate to come back for repeat evaluation It was a pleasure to take care of you and I wish you a speedy recovery Scripts Cetirizine Hcl (ZYRTEC) 10 Mg Tablet 1 TAB PO DAILY for allergic rxn, #30 TAB 2 Refills Prov: AKASH APONTE DO 10/10/20 Prednisone (PREDNISONE) 20 Mg Tablet 40 MG PO DAILY for ALLERGIC RXN for 5 Days, #10 TAB Prov: AKASH APONTE DO 10/10/20 AKASH APONTE DO Oct 10, 2020 10:40
[2020-10-10] MEDS ORDERED: predniSONE 20 MG TABLET PO ONE (10:45)
[2020-10-10] MEDS ORDERED: FAMOTIDINE 20 MG TABLET PO ONE (10:45)
[2020-10-10 10:59] VITALS: BP 130/88
== END 2020-10-10 11:02 | disposition home or self-care (01) ==
LOC: ER 10:05
DX: R21 Rash and other nonspecific skin eruption (principal); T45.0X5A Adverse effect of antiallergic and antiemetic drugs, initial encounter; R06.02 Shortness of breath; R60.0 Localized edema; F41.9 Anxiety disorder, unspecified; J45.909 Unspecified asthma, uncomplicated; F12.90 Cannabis use, unspecified, uncomplicated; Z88.5 Allergy status to narcotic agent; Y92.89 Other specified places as the place of occurrence of the external cause
CPT/HCPCS: 99284; J7512

== ENCOUNTER 2021-01-05 21:34 | Emergency (ER) | payer MEDICAID ==
[~2021-01-05] VITALS: Ht 154.9 cm; Wt 56.6 kg
[~2021-01-05 21:34] MED LIST changes: +CETI10TA74 PO
[2021-01-05] MEDS ORDERED: IV RINGERS SOLUTION,LACTATED 1,000 ML IV ONE (21:45)
--- NOTE | 2021-01-05 21:52 | EKG ---
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
[2021-01-05] MEDS ORDERED: diphenhydrAMINE HCL 25 MG CAPSULE PO ONE (22:00)
[2021-01-05] MEDS ORDERED: ACETAMINOPHEN 500 MG TABLET PO ONE (22:00)
[2021-01-05] MEDS ORDERED: KETOROLAC 15 MG/ML VIAL. IVP ONE (22:00)
--- NOTE | 2021-01-05 22:16 | RAD ---
Exam: Chest one view INDICATION: Shortness of breath TECHNIQUE: Frontal view of the chest Comparisons: 10/14/2019 FINDINGS: The cardiomediastinal silhouette and pulmonary vessels are within normal limits. The lung and pleural spaces are clear. IMPRESSION: No acute cardiopulmonary process. Electronically signed by: Maki Cordero MD (01/05/2021 10:14 PM) PRANAY
--- NOTE | 2021-01-05 22:29 | PHYS DOC ---
Past History Past Medical History: Anxiety, Asthma, Bipolar, Depression Past Surgical History: , Tubal ligation Alcohol Use: None Drug Use: Marijuana Adult General Chief Complaint Chief Complaint: HEADACHE HPI HPI Patient is a 30-year-old female with a past medical history significant for anxiety, depression and bipolar as well as frequent headaches who presents with a headache. States she has had a whole head headache, all day, 5 out of 10, dull and achy in nature. States this feels the same as the headaches that she gets frequently. States she gets several headaches a week. Denies any change in vision, photophobia, photophobia, chest pain, shortness of breath, abdominal pain, nausea, vomiting, diarrhea. Denies any Covid/flu symptoms. Denies any recent travel, traumas, fevers. States she does not like taking medicine and did not take anything today. Denies any numbness/weakness/tingling. Denies any slurred speech or facial droop. Review of Systems Review of Systems Review of systems otherwise unremarkable except noted in HPI. Current Medications Current Medications Current Medications Medications (Trade) Dose Ordered Sig/Clayton Start Time Stop Time Status Last Admin Dose Admin Acetaminophen (Tylenol) 1,000 mg 1X ONCE 01/05/21 22:00 01/05/21 22:01 DC 01/05/21 21:58 1,000 MG Diphenhydramine HCl (Benadryl) 25 mg 1X ONCE 01/05/21 22:00 01/05/21 22:01 DC 01/05/21 21:58 25 MG Ketorolac Tromethamine (Toradol 15mg Vial) 15 mg 1X ONCE 01/05/21 22:00 01/05/21 22:01 DC 01/05/21 21:58 15 MG Lactated Ringer's 1,000 ml @ 1,000 mls/hr 1X ONCE 01/05/21 21:45 01/05/21 22:44 01/05/21 21:58 1,000 MLS/HR Allergies Allergies Allergies Coded Allergies Type Severity Reaction Last Updated Verified codeine Allergy Unknown Nausea and Vomiting 06/22/16 Yes Physical Exam Physical Exam Constitutional: Well developed, well nourished, no acute distress, non-toxic appearance. [] HENT: Normocephalic, atraumatic, bilateral external ears normal, oropharynx moist, no oral exudates, nose normal. [] Eyes: PERRLA, EOMI, conjunctiva normal, no discharge. [] Neck: Normal range of motion, no tenderness, supple, no stridor. [] Cardiovascular:Heart rate regular rhythm, no murmur [] Abdomen: soft, no tenderness, no masses, no pulsatile masses. [] Skin: Warm, dry, no erythema, no rash. [] Back: No tenderness, Extremities: No tenderness, no cyanosis, no clubbing, ROM intact, no edema. [] Neurologic: Alert and oriented X 3, normal motor function, normal sensory function, no focal deficits noted. NIH of 0 [] Psychologic: Affect normal, judgement normal, mood normal. [] Current Patient Data Vital Signs Vital Signs Date Time Temp Pulse Resp B/P (MAP) Pulse Ox O2 Delivery O2 Flow Rate FiO2 01/05/21 21:42 97.8 90 16 119/90 (100) 98 Room Air EKG EKG EKG with a rate of 69, QRS of 74, QTc of 406, no STEMI [] Radiology/Procedures Radiology/Procedures [] Heart Score Risk Factors: Risk Factors: DM, Current or recent (<one month) smoker, HTN, HLP, family history of CAD, obesity. Risk Scores: Risk Factors: DM, Current or recent (<one month) smoker, HTN, HLP, family history of CAD, obesity. Course & Med Decision Making Course & Med Decision Making Patient is a 30-year-old female who presents with a chief complaint of whole head headache all day Vital signs not concerning. Physical exam noted above. Started on IV fluid resuscitation, given Tylenol, Toradol and Benadryl. Urinalysis not concerning. EKG noted above with no STEMI. Troponin not concerning. On reassessment patient stated she was feeling much better, with headache resolved and was ready to be discharged home. Advised to follow-up with primary care physician tomorrow. Gave strict return precautions to the ED. Patient grateful, verbalized understanding and agreed with plan of discharge. [] Dragon Disclaimer Dragon Disclaimer This electronic medical record was generated, in whole or in part, using a voice recognition dictation system. Departure Departure: Impression: Primary Impression: Headache Disposition: 01 DC HOME SELF CARE/HOMELESS Condition: GOOD Referrals: JR GARCIA (PCP) Patient Instructions: General Headache Without Cause Additional Instructions: Please read all of the attached information. Please continue to take Tylenol, ibuprofen, and Benadryl at home. You can add an ice pack to the back of your head as needed. Please call your primary care physician first thing in the morning to update on ED visit and set up a follow-up visit. Please come back to the ED with new or concerning symptoms. SHEMAR SANZ MD Jan 05, 2021 22:29
[2021-01-05 23:12] LABS: BILIRUBIN,URINE NEG (NEG); CLARITY,URINE CLEAR; COLOR,URINE STRAW; GLUCOSE,URINE NEG (NEG)
[2021-01-05 23:13] LABS: BACTERIA,URINE 0 /HPF (0-FEW); NITRITE,URINE NEG (NEG); RBC,URINE 0 /HPF (0-2); SQUAMOUS EPITHELIAL CELL,UR MOD /LPF; UROBILINOGEN,URINE 0.2 mg/dL (0.2 mg/dL); WBC,URINE 0 /HPF (0-4)
[2021-01-05 23:15] VITALS: BP 109/74
== END 2021-01-05 23:15 | disposition home or self-care (01) ==
LOC: ER 21:34
DX: R51.9 Headache, unspecified (principal); F41.9 Anxiety disorder, unspecified; J45.909 Unspecified asthma, uncomplicated; F32.9 Major depressive disorder, single episode, unspecified; F12.90 Cannabis use, unspecified, uncomplicated; Z98.890 Other specified postprocedural states; Z98.51 Tubal ligation status; Z88.5 Allergy status to narcotic agent
CPT/HCPCS: 36415; 71045; 81001; 81025; 84484; 93005; 96361; 96374; 99285; J1885; J7120; Q0163

== ENCOUNTER 2021-03-17 10:08 | Emergency (ER) | payer MEDICAID ==
[~2021-03-17] VITALS: Ht 154.9 cm; Wt 59.0 kg
[2021-03-17 10:14] VITALS: BP 127/80
[2021-03-17] MEDS ORDERED: PRED20TA PO (10:38)
[2021-03-17] MEDS ORDERED: AMOX1TAB61 PO (10:38)
--- NOTE | 2021-03-17 10:39 | PHYS DOC ---
Past History Past Medical History: Anxiety, Asthma, Bipolar, Depression, Migraines Additional Past Medical Histor: nasal polyps, chronic sinus infections Past Surgical History: , Tubal ligation Smoking: Non-smoker Alcohol Use: None Drug Use: Marijuana General Adult EDM: Chief Complaint: HEADACHE HPI: HPI: 30-year-old female presents with report of sinus headache x24 hours. Patient reports she is not been able to breathe recently. Patient reports she is seen PCP and an ENT and they have tried to treat with medicines without any improvement. Patient reports known sinus polyps for which she thinks she might need surgery. Patient reports "low-grade fever "of 100.1F. Patient reports Review of Systems: Review of Systems: Constitutional: Denies fever or chills Eyes: Denies redness or eye pain HENT: Reports nasal congestion and sinus pressure Respiratory: Denies cough or shortness of breath Cardiovascular: Denies chest pain or palpitations GI: Denies abdominal pain, nausea, or vomiting : Denies dysuria or hematuria Musculoskeletal: Denies back pain or joint pain Integument: Denies rash or skin lesions Neurologic: Reports headache; denies focal weakness or sensory changes Complete systems were reviewed and found to be within normal limits, except as documented in this note. Allergies: Allergies: Allergies Coded Allergies Type Severity Reaction Last Updated Verified codeine Allergy Unknown Nausea and Vomiting 03/17/21 Yes Physical Exam: PE: Constitutional: Well developed, well nourished, no acute distress, non-toxic appearance HENT: Normocephalic, atraumatic, TMs clear bilaterally, nasal congestion noted, maxillary sinus tenderness on palpation, turbinates enlarged, tonsils enlarged without significant erythema or exudate Eyes: PERRL, EOMI, conjunctiva normal, no discharge Neck: Normal range of motion, no tenderness, supple, no meningeal signs Lungs & Thorax: No respiratory distress, equal chest rise and fall Skin: Warm, dry, no erythema, no rash Extremities: No tenderness, ROM intact, no edema Neurologic: Alert and oriented X 3, normal motor function, normal sensory function, no focal deficits noted Psychologic: Affect normal, judgment normal Current Patient Data: Vital Signs: Vital Signs Date Time Temp Pulse Resp B/P (MAP) Pulse Ox O2 Delivery O2 Flow Rate FiO2 03/17/21 10:14 97.7 78 18 127/80 (96) 100 EKG: EKG: [] Radiology/Procedures: Radiology/Procedures: [] Heart Score: C/O Chest Pain: N/A Course & Med Decision Making: Course & Med Decision Making Patient presents with HPI and physical exam consistent for sinusitis causing a sinus headache. Patient does have a history of chronic sinus issues. Patient does report "low-grade fever "yesterday. Denies trauma. Afebrile. Patient neurologically intact. Symptomatic treatment provided with oral steroid. A prescription for empiric antibiotics provided with instructions to "watch and wait ". Patient stable for discharge with outpatient follow-up with PCP/ENT. ENT referral provided. Discussed findings and plan with patient, who acknowledges understanding and agreement. Dragon Disclaimer: [employer] Disclaimer: This electronic medical record was generated, in whole or in part, using a voice recognition dictation system. Departure Departure: Impression: Primary Impression: Sinusitis Qualified Codes: J32.0 - Chronic maxillary sinusitis Disposition: HOME / SELF CARE / HOMELESS Condition: STABLE Referrals: JR GARCIA (PCP) Patient Instructions: Sinus Headache, [id number], Sinusitis, [id number] Additional Instructions: May also use previously prescribed medications for your environmental allergies. Hold antibiotics for 48 hours. If symptoms worsen or for fever > 100.3 F after 48 hours then start antibiotics as prescribed. Call Dr. Brooke Husain (ENT) for further evaluation Address: [address] [place] [address] [address], [place] [address] Scripts Amoxicillin/Potassium Clav (AUGMENTIN 875-125 TABLET) 1 Each Tablet 1 TAB PO BID for Sinusitis for 7 Days, #14 TAB 0 Refills Prov: BINH RODRIGUEZ DO 03/17/21 Prednisone (PREDNISONE) 20 Mg Tablet 2 TAB PO DAILY for Sinusitis, #8 TAB Start this prescription tomorrow, Sunday03/18/21 Prov: BINH RODRIGUEZ DO 03/17/21 BINH RODRIGUEZ DO March 17, 2021 10:39
[2021-03-17] MEDS ORDERED: DEXAMETHASONE 4 MG TABLET PO ONE (10:45)
== END 2021-03-17 10:53 | disposition home or self-care (01) ==
LOC: ER 10:08
DX: J32.9 Chronic sinusitis, unspecified (principal); F41.9 Anxiety disorder, unspecified; J45.909 Unspecified asthma, uncomplicated; F12.10 Cannabis abuse, uncomplicated; Z88.6 Allergy status to analgesic agent; Z98.51 Tubal ligation status
CPT/HCPCS: 99283; J8540

== ENCOUNTER 2021-05-20 14:19 | Emergency (ER) | payer MEDICAID ==
[~2021-05-20] VITALS: Ht 154.9 cm; Wt 58.6 kg
[~2021-05-20 14:19] MED LIST changes: +AMOX1TAB61 PO
[2021-05-20 14:35] VITALS: BP 136/98
[2021-05-20 15:21] LABS: BILIRUBIN,URINE NEG (NEG); CLARITY,URINE CLEAR; COLOR,URINE YELLOW; GLUCOSE,URINE NEG (NEG); NITRITE,URINE NEG (NEG); UROBILINOGEN,URINE 0.2 mg/dL (0.2 mg/dL)
[2021-05-20 15:23] LABS: BACTERIA,URINE 0 /HPF (0-FEW); RBC,URINE 0 /HPF (0-2); WBC,URINE 0 /HPF (0-4)
--- NOTE | 2021-05-20 15:23 | RAD ---
INDICATION: Reason: PELVIC PAIN WITH IUD REMOVAL TODAY / Spl. Instructions: / History: COMPARISON: November 2016 . TECHNIQUE: Grayscale and color ultrasound images uterus and adnexa. Transabdominal and transvaginal images obtained. Transvaginal images were needed to better visualize structures that were limited on transabdominal imaging. FINDINGS: Uterus: 84 x 50 mm. 8mm endometrial stripe. Right Ovary: 31 x 25 x 20 mm. Left Ovary: 32 x 26 x 24 mm. Vascular flow identified to bilateral ovaries. Small free fluid in the pelvis. At the anterior aspect of the uterus midportion there is an 11 x 12 mm hypoechoic region seen IMPRESSION: * Vascular flow seen to the ovaries. * At the anterior aspect of the uterus there is a hypoechoic region identified. Would correlate as t o whether the patient has had a history of surgery to the region since it is possible that this is se condary to post operative changes such as operative defect. It is also possible that this is secondar y to folding of the wall of the uterus at this location with complex fluid within the region. If furt her evaluation is desired either CT or MRI could BE obtained with contrast to further assess and to e nsure that this is not secondary to an alternative cause such as injury to the anterior aspect of the uterus with associated defect status post intrauterine device removal. * Small free fluid is seen within the pelvis. Electronically signed by: Elder Husain MD (05/20/2021 3:21 PM) [id number]
[2021-05-20 15:31] LABS: BASO # 0.1 x10^3/uL (0.0-0.2); BASO % 1 % (0-3); EOS # 0.6 x10^3/uL (0.0-0.7); EOS % 7 % (0-3); HEMATOCRIT 42.1 % (36.0-47.0); HEMOGLOBIN 14.4 g/dL (12.0-15.5); LYMPH # 2.6 x10^3/uL (1.0-4.8); LYMPH % 33 % (24-48); MEAN CORPUSCULAR HEMOGLOBIN 31 pg (25-35); MEAN CORPUSCULAR HGB CONC 34 g/dL (31-37); MEAN CORPUSCULAR VOLUME 90 fL (79-100); MONO # 0.5 x10^3/uL (0.0-1.1); MONO % 7 % (0-9); NEUT # 4.2 x10^3uL (1.8-7.7); NEUT % 52 % (31-73); PLATELET COUNT 304 x10^3/uL (140-400); RED CELL DISTRIBUTION WIDTH 12.8 % (11.5-14.5); WHITE BLOOD COUNT 8.1 x10^3/uL (4.0-11.0)
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
[2021-05-20 15:37] LABS: U PREG PATIENT NEGATIVE (NEG)
[2021-05-20 15:44] LABS: CREATININE 0.9 mg/dL (0.6-1.0); GFR 88.4; POTASSIUM 3.7 mmol/L (3.5-5.1)
[2021-05-20 15:49] LABS: ALBUMIN 4.2 g/dL (3.4-5.0); ALBUMIN/GLOBULIN RATIO 1.2 (1.0-1.7); TOTAL BILIRUBIN 0.6 mg/dL (0.2-1.0); TOTAL PROTEIN 7.7 g/dL (6.4-8.2)
[2021-05-20] MEDS ORDERED: IBUP400T18 PO (16:32)
[2021-05-20] MEDS ORDERED: CYCL5TAB PO (16:32)
== END 2021-05-20 16:59 | disposition home or self-care (01) ==
LOC: ER 14:19
DX: G89.29 Other chronic pain (principal); R10.2 Pelvic and perineal pain; J45.909 Unspecified asthma, uncomplicated; G43.909 Migraine, unspecified, not intractable, without status migrainosus; Z98.890 Other specified postprocedural states; Z98.51 Tubal ligation status; Z88.5 Allergy status to narcotic agent
CPT/HCPCS: 36415; 76830; 76856; 80053; 81001; 81025; 85025; 99284-25

== ENCOUNTER 2021-07-24 09:31 | Emergency (ER) | payer MEDICAID ==
[~2021-07-24] VITALS: Ht 154.9 cm; Wt 59.2 kg
[2021-07-24 09:31] VITALS: BP 138/88
[~2021-07-24 09:31] MED LIST changes: +CYCL5TAB PO; +IBUP400T18 PO
[2021-07-24] MEDS ORDERED: IBUPROFEN 600 MG TABLET. PO ONE (10:30)
[2021-07-24] MEDS ORDERED: ALBU2.5V8 IH (10:38)
[2021-07-24] MEDS ORDERED: AMOX1TAB61 PO (10:38)
[2021-07-24] MEDS ORDERED: FLUT1DIS3 IH (10:38)
[2021-07-24] MEDS ORDERED: METH4TAB2 PO (10:38)
--- NOTE | 2021-07-24 10:39 | PHYS DOC ---
Past History Past Medical History: Anxiety, Asthma, Bipolar, Depression, Migraines Additional Past Medical Histor: nasal polyps, chronic sinus infections Past Surgical History: , Tubal ligation Smoking: Non-smoker Alcohol Use: None Drug Use: Marijuana General Adult EDM: Chief Complaint: EARACHE/EAR PAIN HPI: HPI: Patient is a 31-year-old female who presents with nasal congestion, sore throat, sinus pressure. Patient states that she was on amoxicillin 2 months ago with no relief of symptoms. Patient has a history of asthma and states that she is also out of both of her inhalers. Patient is not taking any daily medications to help with symptoms. Denies fever. Review of Systems: Review of Systems: Constitutional: Denies fever or chills Eyes: Denies change in visual acuity HENT: Reports nasal congestion or sore throat Respiratory: Reports chronic cough. Denies shortness of breath Cardiovascular: Denies chest pain or edema GI: Denies abdominal pain, nausea, vomiting, bloody stools or diarrhea : Denies dysuria Musculoskeletal: Denies back pain or joint pain Integument: Denies rash Neurologic: Denies headache, focal weakness or sensory changes Endocrine: Denies polyuria or polydipsia Lymphatic: Denies swollen glands Psychiatric: Denies depression or anxiety Allergies: Allergies: Allergies Coded Allergies Type Severity Reaction Last Updated Verified codeine Allergy Unknown Nausea and Vomiting 03/17/21 Yes Physical Exam: PE: Constitutional: Well developed, well nourished, no acute distress, non-toxic appearance. [] HENT: Normocephalic, atraumatic, bilateral external ears normal, throat is red and irritated, no oral exudates, nose normal. [] Eyes: PERRLA, EOMI, conjunctiva normal, no discharge. [] Neck: Normal range of motion, no tenderness, supple, no stridor. [] Cardiovascular:Heart rate regular rhythm, no murmur [] Lungs & Thorax: Bilateral breath sounds clear to auscultation [] Abdomen: Bowel sounds normal, soft, no tenderness, no masses, no pulsatile masses. [] Skin: Warm, dry, no erythema, no rash. [] Back: No tenderness, no CVA tenderness. [] Extremities: No tenderness, no cyanosis, no clubbing, ROM intact, no edema. [] Neurologic: Alert and oriented X 3, normal motor function, normal sensory function, no focal deficits noted. [] Psychologic: Affect normal, judgement normal, mood normal. [] EKG: EKG: [] Radiology/Procedures: Radiology/Procedures: [] Heart Score: C/O Chest Pain: No Risk Factors: Risk Factors: DM, Current or recent (<one month) smoker, HTN, HLP, family history of CAD, obesity. Risk Scores: Score 0 - 3: 2.5% MACE over next 6 weeks - Discharge Home Score 4 - 6: 20.3% MACE over next 6 weeks - Admit for Clinical Observation Score 7 - 10: 72.7% MACE over next 6 weeks - Early Invasive Strategies Course & Med Decision Making: Course & Med Decision Making Pertinent Labs and Imaging studies reviewed. (See chart for details) [] 31-year-old female presents with nasal congestion, sore throat, sinus pressure for the last 2 months. Patient was treated with amoxicillin and has had no relief of symptoms. Patient has a history of nasal polyps and asthma. Patient is afebrile. Patient is red and irritated most likely from drainage. No oral exudates seen. Patient given Mucinex D and Motrin in the emergency room to help with symptoms. Patient sent home with a prescription for Medrol Dosepak, Augmentin, Advair, Ventolin. Discussed treatment plan at home with patient. Advised patient to purchase Mucinex D from the pharmacy, salt water gargles, and ibuprofen to help with symptoms. Patient is appreciative and happy with discharge plan. Patient is hemodynamically stable upon disposition. Claire Disclaimer: Claire Disclaimer: This electronic medical record was generated, in whole or in part, using a voice recognition dictation system. Departure Departure: Impression: Primary Impression: Sinusitis Qualified Codes: J01.10 - Acute frontal sinusitis, unspecified Additional Impression: Acute asthma exacerbation Qualified Codes: J45.41 - Moderate persistent asthma with (acute) exacerbation Disposition: HOME / SELF CARE / HOMELESS Condition: STABLE Referrals: JR GARCIA (PCP) Patient Instructions: Sinusitis, [id number] Additional Instructions: You were seen in the emergency room for nasal congestion, sinus pressure. I am sending you home with a prescription for Augmentin to treat your sinusitis. I am also refilling your inhalers for your asthma. As well as a Medrol Dosepak. Please take ibuprofen throughout the day to help with discomfort. Purchase Mucinex D from the pharmacist to help with congestion. Make sure you are drinking plenty of fluids. Salt water gargles to help with sore throat. Please follow-up with your PCP if symptoms do not improve. Return emergency room if you have worsening symptoms or concerns. EMERGENCY DEPARTMENT GENERAL DISCHARGE INSTRUCTIONS Thank you for coming to [facility] (ED) today and trusting us with you care. We trust that you had a positivie experience in our Emergency Department. If you wish to speak to the department management, you may call the director at [phone]. YOUR FOLLOW UP INSTRUCTIONS ARE FOLLOWS: 1. Do you have a private Doctor? If you do not have a private doctor, please ask for a resource list of physicians or clinics that may be able to assist you with follow up care. 2. The Emergency Physician has interpreted your x-rays. The X-Ray specialist will also review them. If there is a change in the findings, you will be notified in 48 hours when at all possible. 3. A lab test or culture has been done, your results will be reviewed and you will be notified if you need a change in treatment. ADDITIONAL INSTRUCTIONS AND INFORMATION: 1. Your care today has been supervised by a physician who is specially trained in emergency care. Many problems require more than one evaluation for a complete diagnosis and treatment. We recommend that you schedule your follow up appointment as recommended to ensure complete treatment of you illness or injury. If you are unable to obtain follow up care and continue to have a problem, or if your condition worsens, we recommend that you return to the ED. 2. We are not able to safely determine your condition over the phone nor are we able to give sound medical advice over the phone. For these safety reasons, if you call for medical advice we will ask you to come to the ED for further evaluation. 3. If you have any questions regarding these discharge instructions please call the ED at [phone]. SAFETY INFORMATION: In the interest of safety, wellness, and injury prevention; we encourage you to wear your sealbelt, if you smoke; quite smoking, and we encourage family to use a protective helmet for bicycling and other sporting events that present an increased risk for head injury. IF YOUR SYMPTOMS WORSEN OR NEW SYMPTOMS DEVELOP, OR YOU HAVE CONCERNS ABOUT YOUR CONDITION; OR IF YOUR CONDITION WORSENS WHILE YOU ARE WAITING FOR YOUR FOLLOW UP APPOINTMENT; EITHER CONTACT YOUR PRIMARY CARE DOCTOR, THE PHYSICIAN WHOSE NAME AND NUMBER YOU WERE GIVEN, OR RETURN TO THE ED IMMEDIATELY. Scripts Albuterol Sulfate (PROAIR HFA INHALER) 8.5 Gm Hfa.aer.ad 2 PUFF IH PRN Q4-6HRS PRN for wheezing for 21 Days, #1 INHALER 0 Refills as needed for wheezing Prov: DILIP DUKES APRN 07/24/21 Methylprednisolone (MEDROL) 4 Mg Tab.ds.pk 1 PKG PO UD for inflammation for 6 Days, #1 PKG 0 Refills Prov: DILIP DUKES APRN 07/24/21 Fluticasone/Salmeterol (ADVAIR 250-50 DISKUS) 1 Each Disk.w.dev 1 PUFF IH BID for ASTHMA, #3 INHALER 3 Refills Prov: DILIP DUKES APRN 07/24/21 Amoxicillin/Potassium Clav (AUGMENTIN 875-125 TABLET) 1 Each Tablet 1 TAB PO BID for SINUSITIS for 10 Days, #20 TAB 0 Refills Prov: DILIP DUKES APRN 07/24/21 DILIP DUKES APRN Jul 24, 2021 10:39
[2021-07-24] MEDS ORDERED: guaiFENesin/PS-EPHED 600/60MG 1 TAB TAB.ER.12H PO SCH (21:00)
== END 2021-07-24 10:58 | disposition home or self-care (01) ==
LOC: ER 09:31
DX: J45.41 Moderate persistent asthma with (acute) exacerbation (principal); J01.10 Acute frontal sinusitis, unspecified; F31.9 Bipolar disorder, unspecified; G43.909 Migraine, unspecified, not intractable, without status migrainosus; Z88.5 Allergy status to narcotic agent
CPT/HCPCS: 99283

== ENCOUNTER 2021-10-08 21:06 | Emergency (ER) | payer MEDICAID ==
[~2021-10-08] VITALS: Ht 154.9 cm; Wt 59.2 kg
[~2021-10-08 21:06] MED LIST changes: +ALBU2.5V8 IH
[2021-10-08 21:15] VITALS: BP 148/92
--- NOTE | 2021-10-08 21:49 | PHYS DOC ---
Past History Past Medical History: Anxiety, Asthma, Bipolar, Depression, Migraines Additional Past Medical Histor: nasal polyps, chronic sinus infections Past Surgical History: , Tubal ligation Smoking: Non-smoker Alcohol Use: None Drug Use: Marijuana Adult General Chief Complaint Chief Complaint: FACE PAIN HPI HPI Patient is a 31-year-old female with a past medical history significant for chronic sinusitis who presents with nasal congestion and concern for sinusitis. States he has had some nasal congestion over the last couple of days with some nasal pressure and headache. States she is taken some Tylenol with minimal relief. States she had seen her physician. Denies any recent traumas, travels, illnesses, fevers, cough, pain or trouble swallowing, chest pain, shortness of breath, abdominal pain, nausea, vomiting. Review of Systems Review of Systems Review of systems otherwise unremarkable except noted in HPI Allergies Allergies Allergies Coded Allergies Type Severity Reaction Last Updated Verified codeine Allergy Unknown Nausea and Vomiting 03/17/21 Yes Physical Exam Physical Exam Constitutional: Well developed, well nourished, no acute distress, non-toxic appearance. [] HENT: Normocephalic, atraumatic, bilateral external ears normal, oropharynx moist, no oral exudates, nasal congestion with patent nares Eyes: conjunctiva normal, no discharge. [] Neck: Normal range of motion, no tenderness, supple, no stridor. [] Cardiovascular:Heart rate regular rhythm, no murmur [] Lungs & Thorax: Bilateral breath sounds clear to auscultation [] Neurologic: Alert and oriented X 3, normal motor function, normal sensory function, no focal deficits noted. [] Psychologic: Affect normal, judgement normal, mood normal. [] Current Patient Data Vital Signs Vital Signs Date Time Temp Pulse Resp B/P (MAP) Pulse Ox O2 Delivery O2 Flow Rate FiO2 10/08/21 21:15 98.1 104 18 148/92 (110) Room Air EKG EKG [] Radiology/Procedures Radiology/Procedures [] Heart Score C/O Chest Pain: No Risk Factors: Risk Factors: DM, Current or recent (<one month) smoker, HTN, HLP, family history of CAD, obesity. Risk Scores: Risk Factors: DM, Current or recent (<one month) smoker, HTN, HLP, family history of CAD, obesity. Course & Med Decision Making Course & Med Decision Making Patient is a 31-year-old female that presents with nasal congestion sinusitis Vital signs normal for sinus tachycardia. Physical exam noted above. Patient given some Afrin, Mucinex, diphenhydramine and pain medicine. Discussed on symptom management at home. Advised to follow-up with primary care on Sunday to update on ED visit Gave return precautions to the ED. Patient grateful, verbalized understanding and agree with plan of discharge. [] Dragon Disclaimer Dragon Disclaimer This electronic medical record was generated, in whole or in part, using a voice recognition dictation system. Departure Departure: Impression: Primary Impression: Sinusitis Disposition: HOME / SELF CARE / HOMELESS Condition: GOOD Referrals: JR GARCIA (PCP) Patient Instructions: Sinusitis Additional Instructions: Thank for coming into the emergency department tonight and allowing us to take care of you. Please read the attached information carefully to go back over so me of the things we discussed. Please begin a regimen at home of Tylenol, ibuprofen, some Afrin and some Mucinex. Please follow-up with your doctor first thing Sunday morning to update on your ED visit. Please come back with new or concerning symptoms as discussed. SHEMAR SANZ MD Oct 08, 2021 21:49
[2021-10-08] MEDS ORDERED: guaiFENesin DM 600/30MG 1 TAB TAB.ER.12H PO SCH (22:00)
[2021-10-08] MEDS ORDERED: OXYMETAZOLINE 0.05% NASAL SPRAY 30ML BOTTLE. NS ONE (22:00)
[2021-10-08] MEDS ORDERED: diphenhydrAMINE HCL 25 MG CAPSULE PO ONE (22:00)
[2021-10-08] MEDS ORDERED: ACETAMINOPHEN/CODEINE 300/30MG 4TABLET STARTPACK. PO ONE (22:00)
[2021-10-08] MEDS ORDERED: DEXAMETHASONE 4 MG TABLET PO ONE (22:15)
== END 2021-10-08 22:12 | disposition home or self-care (01) ==
LOC: ER 21:06
DX: J32.9 Chronic sinusitis, unspecified (principal); F41.9 Anxiety disorder, unspecified; J45.909 Unspecified asthma, uncomplicated; F31.9 Bipolar disorder, unspecified; G43.909 Migraine, unspecified, not intractable, without status migrainosus; Z88.5 Allergy status to narcotic agent
CPT/HCPCS: 99284; J8540; Q0163

== ENCOUNTER 2022-01-09 11:11 | Emergency (ER) | payer MEDICAID ==
[~2022-01-09] VITALS: Ht 154.9 cm; Wt 65.0 kg
[2022-01-09 11:20] VITALS: BP 130/82
[2022-01-09] MEDS ORDERED: OXYMETAZOLINE 0.05% NASAL SPRAY 30ML BOTTLE. NS ONE (11:45)
[2022-01-09] MEDS ORDERED: PRED50TA PO (11:55)
[2022-01-09] MEDS ORDERED: AZEL137S3 NS (11:55)
--- NOTE | 2022-01-09 11:55 | PHYS DOC ---
Past History Past Medical History: Anxiety, Asthma, Bipolar, Depression, Migraines Additional Past Medical Histor: nasal polyps, chronic sinus infections Past Surgical History: Smoking: Non-smoker Alcohol Use: None Drug Use: Marijuana General Adult EDM: Chief Complaint: CONGESTION HPI: HPI: 31-year-old female coming in for congestion, productive cough and facial pain. Patient states she also feels pressure in her ears. Patient has a history of recurrent sinus infections. Patient has tried multiple times to get in with ENT but has not been able to. Patient's been taking Mucinex without improvement. Review of Systems: Review of Systems: All other systems within normal limits except for as noted in the HPI Allergies: Allergies: Allergies Coded Allergies Type Severity Reaction Last Updated Verified codeine Allergy Unknown Nausea and Vomiting 03/17/21 Yes Physical Exam: PE: Constitutional: Well developed, well nourished, no acute distress, non-toxic appearance. [] HENT: Normocephalic, atraumatic, bilateral external ears normal, nose normal. TMs unremarkable, sinus tenderness [] Eyes: PERRLA, conjunctiva normal, no discharge. [] Neck: No rigidity, supple, no stridor. [] Cardiovascular: Regular rate and rhythm, brisk cap refill [] Lungs & Thorax: Non labored symmetric respirations, no tachypnea or respiratory distress. Lungs clear to auscultation, no wheezes [] Abdomen: Soft, nondistended. Skin: Warm, dry, no erythema, no rash. [] Back: Unremarkable Extremities: No deformities, range of motion grossly intact, no lower extremity edema [] Neurologic: Alert and oriented X 3, no focal deficits noted. [] Psychologic: Affect normal, judgement normal, mood normal. [] Current Patient Data: Vital Signs: Vital Signs Date Time Temp Pulse Resp B/P (MAP) Pulse Ox O2 Delivery O2 Flow Rate FiO2 01/09/22 11:20 97.9 118 20 130/82 (98) 99 Room Air EKG: EKG: [] Radiology/Procedures: Radiology/Procedures: [] Heart Score: C/O Chest Pain: No Risk Factors: Risk Factors: DM, Current or recent (<one month) smoker, HTN, HLP, family history of CAD, obesity. Risk Scores: Score 0 - 3: 2.5% MACE over next 6 weeks - Discharge Home Score 4 - 6: 20.3% MACE over next 6 weeks - Admit for Clinical Observation Score 7 - 10: 72.7% MACE over next 6 weeks - Early Invasive Strategies Course & Med Decision Making: Course & Med Decision Making Pertinent Labs and Imaging studies reviewed. (See chart for details) [] Claire Disclaimer: Claire Disclaimer: This electronic medical record was generated, in whole or in part, using a voice recognition dictation system. Departure Departure: Impression: Primary Impression: Sinusitis, acute Disposition: HOME / SELF CARE / HOMELESS Condition: STABLE Referrals: JR GARCIA (PCP) Patient Instructions: Azelastine nasal spray Scripts Azelastine Hcl (AZELASTINE HCL) 137 Mcg/0.137 Ml [place].pump 2 SPR NS BID for congestion for 30 Days, #30 ML 0 Refills Prov: TIO JARRETT MD 01/09/22 Prednisone (PREDNISONE) 50 Mg Tablet 1 TAB PO DAILY for steroid for 4 Days, #4 TAB You received this medication in the emergency room today. You will starting your next dose tomorrow. Prov: TIO JARRETT MD 01/09/22 TIO JARRETT MD Jan 09, 2022 11:55
[2022-01-09] MEDS ORDERED: predniSONE 20 MG TABLET PO ONE (12:00)
== END 2022-01-09 12:17 | disposition home or self-care (01) ==
LOC: ER 11:11
DX: J01.90 Acute sinusitis, unspecified (principal); J45.909 Unspecified asthma, uncomplicated; F31.9 Bipolar disorder, unspecified; G43.909 Migraine, unspecified, not intractable, without status migrainosus; Z98.890 Other specified postprocedural states; Z88.5 Allergy status to narcotic agent
CPT/HCPCS: 99283; J7512

== ENCOUNTER 2022-01-27 04:54 | Emergency (ER) | payer MEDICAID ==
[~2022-01-27] VITALS: Ht 154.9 cm; Wt 65.0 kg
[~2022-01-27 04:54] MED LIST changes: +AZEL137S3 NS
--- NOTE | 2022-01-27 05:04 | PHYS DOC ---
Past History Past Medical History: Anxiety, Asthma, Bipolar, Depression, Migraines Additional Past Medical Histor: nasal polyps, chronic sinus infections Past Surgical History: Smoking: Non-smoker Alcohol Use: None Drug Use: Marijuana General Adult HPI: HPI: ".. My asthma has gotten really bad tonight.. I probably need to be back on steroids.. ".." I have these nasal polyps been seeing the doctor up stairs.. See if they can do something with them" Patient is a 31 year old female who presents with above hx and complaints of asthma exacerbation. Patient does not know her best peak flow but states that she is about 85% of her predicted. Patient has had multiple asthma evaluations in emergency department. Patient has not had hospitalizations overnight for her asthma exacerbation since childhood. Patient reports no tobacco use. Has had past marijuana use. Patient denies any history immunosuppression. No recent travel. Triggers tend to be seasonal and weather changes. Patient has not had Pneumovax. Patient has not completed flu vaccination or Covid vaccination. Patient follows with Dr. Garcia as a primary. Review of Systems: Review of Systems: Constitutional: Denies fever or chills Eyes: Denies change in visual acuity HENT: Complains of nasal congestion and nasal polyps Respiratory: Complains of cough and wheezing-asthma exacerbation Cardiovascular: Denies chest pain or edema GI: Denies abdominal pain, nausea, vomiting, bloody stools or diarrhea : Denies dysuria Musculoskeletal: Denies back pain or joint pain Integument: Denies rash Neurologic: Denies headache, focal weakness or sensory changes Endocrine: Denies polyuria or polydipsia Lymphatic: Denies swollen glands Psychiatric: Denies depression or anxiety Family History: Family History: Noncontributory to presentation Current Medications: Current Meds: See nursing for home meds Allergies: Allergies: Allergies Coded Allergies Type Severity Reaction Last Updated Verified codeine Allergy Unknown Nausea and Vomiting 03/17/21 Yes Physical Exam: PE: Constitutional: Moderate acute distress, non-toxic appearance. [] HENT: Normocephalic, atraumatic, bilateral external ears normal, oropharynx moist, no oral exudates, nose nasal polyps and clear rhinorrhea. Postnasal drainage. Eyes: PERRLA, EOMI, conjunctiva normal, no discharge. [] Neck: Normal range of motion, no tenderness, supple, no stridor. [] Cardiovascular: Tachycardia heart rate regular rhythm, no murmur [] Lungs & Thorax: Bilateral breath sounds to apex with scattered wheezes auscultation [] Abdomen: Bowel sounds normal, soft, no tenderness, no masses, no pulsatile masses. [] Skin: Warm, dry, no erythema, no rash. Tattoos Back: No tenderness, no CVA tenderness. [] Extremities: No tenderness, no cyanosis, no clubbing, ROM intact, no edema. No cording appreciated. Neurologic: Alert and oriented X 3, normal motor function, normal sensory function, no focal deficits noted. [] Psychologic: Affect anxious, judgement normal, mood normal. [] EKG: EKG: [] Radiology/Procedures: Radiology/Procedures: [] Heart Score: C/O Chest Pain: N/A HEART Score for Chest Pain: HEART Score for Chest Pain Response (Comments) Value History Slighlty/Non-Suspicious 0 ECG Normal 0 Age < 45 0 Risk Factors 1 or 2 Risk Factors 1 Total 1 Risk Factors: Risk Factors: DM, Current or recent (<one month) smoker, HTN, HLP, family history of CAD, obesity. Risk Scores: Score 0 - 3: 2.5% MACE over next 6 weeks - Discharge Home Score 4 - 6: 20.3% MACE over next 6 weeks - Admit for Clinical Observation Score 7 - 10: 72.7% MACE over next 6 weeks - Early Invasive Strategies Course & Med Decision Making: Course & Med Decision Making Pertinent Labs and Imaging studies reviewed. (See chart for details) Patient keep follow-up primary care. Patient document peak flows. Patient use the MDI 2 puffs 4 times a day. Patient take prednisone 60 mg a day. Consider use of Flonase 2 sprays daily. Frequent nasal irrigation normal saline. Consider updating flu vaccination, Pneumovax, and COVID vaccinations. When off the steroids. Endorsed to Dr. Longo at shift change. Awaiting Rapid Flu and Covid results at shift change. Impression: 1. Asthma Exacerbation 2. Nasal polyps [] Claire Disclaimer: Claire Disclaimer: This electronic medical record was generated, in whole or in part, using a voice recognition dictation system. Departure Departure: Referrals: JR GARCIA (PCP) Scripts Prednisone (PREDNISONE) 50 Mg Tablet 60 MG PO DAILY for asthma. for 5 Days, #6 TAB Prov: SHORTY CESPEDES MD 01/27/22 Claire Disclaimer This chart was dictated in whole or in part using Voice Recognition software in a busy, high-work load, and often noisy Emergency Department environment. It may contain unintended and wholly unrecognized errors or omissions. Dragon Disclaimer This chart was dictated in whole or in part using Voice Recognition software in a busy, high-work load, and often noisy Emergency Department environment. It may contain unintended and wholly unrecognized errors or omissions. SHORTY CESPEDES MD Jan 27, 2022 05:04
[2022-01-27 05:06] VITALS: BP 131/76
[2022-01-27] MEDS: ALBUTEROL SULFATE 8GM INHALER. INH ONE (05:21)
[2022-01-27] MEDS: predniSONE 20 MG TABLET PO ONE (05:21)
[2022-01-27] MEDS ORDERED: PRED50TA PO (05:54)
[2022-01-27 06:18] LABS: INFLUENZA A PATIENT NEGATIVE (NEGATIVE); INFLUENZA B PATIENT NEGATIVE (NEGATIVE)
== END 2022-01-27 06:26 | disposition home or self-care (01) ==
LOC: ER 04:54
DX: J45.901 Unspecified asthma with (acute) exacerbation (principal); J33.9 Nasal polyp, unspecified; F41.9 Anxiety disorder, unspecified; F31.9 Bipolar disorder, unspecified; G43.909 Migraine, unspecified, not intractable, without status migrainosus; Z88.5 Allergy status to narcotic agent
CPT/HCPCS: 87428; 94640; 99283; J7512; 94664

== ENCOUNTER → 2022-03-14 | Outpatient (CLI) | payer OTHER ==
--- NOTE | 2022-03-14 15:34 | RAD ---
Exam: Right hand 3 views. Right wrist 3 views INDICATION: Altercation, hand and wrist pain TECHNIQUE: Frontal, lateral and oblique views of the right hand and right wrist Comparisons: None FINDINGS: Hand: Bone mineralization is normal. No acute or healed fractures. Soft tissues are unremarkable. Joint spa luther are well-maintained. Wrist: Bone mineralization is normal. No acute or healed fractures. Soft tissues are unremarkable. Joint spa luther are well-maintained. IMPRESSION: No acute osseous abnormality of the right hand or right wrist Electronically signed by: Maki Cordero MD (03/14/2022 3:32 PM) PRANAY
== END ==
LOC: RAD 15:07
PROVIDERS: ATTEND Nurse Practitioner Family
DX: S69.91XA Unspecified injury of right wrist, hand and finger(s), initial encounter (principal); X58.XXXA Exposure to other specified factors, initial encounter; Y93.89 Activity, other specified; Y92.89 Other specified places as the place of occurrence of the external cause; Y99.8 Other external cause status
CPT/HCPCS: 73110; 73130

== ENCOUNTER 2022-03-16 05:25 | Emergency (ER) | payer MEDICAID, OTHER ==
[~2022-03-16] VITALS: Ht 154.9 cm; Wt 63.7 kg
[2022-03-16 05:37] VITALS: BP 139/66
--- NOTE | 2022-03-16 05:39 | PHYS DOC ---
Past History Past Medical History: Anxiety, Asthma, Bipolar, Depression, Migraines Additional Past Medical Histor: nasal polyps, chronic sinus infections Past Surgical History: Smoking: Non-smoker Alcohol Use: None Drug Use: Marijuana Adult General Chief Complaint Chief Complaint: SHORTNESS OF BREATH HPI HPI Patient is a 31-year-old female with a past medical history of asthma who presents with a chief complaint of nasal congestion for the last couple of days. Denies any fevers, neck pain, pain or trouble swallowing, chest pain, shortness of breath, abdominal pain, nausea, vomiting, diarrhea. 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 States he is eating and drinking normally. States he is making urine and stool normally for her. Review of Systems Review of Systems Review of systems otherwise unremarkable except noted in HPI Allergies Allergies Allergies Coded Allergies Type Severity Reaction Last Updated Verified codeine Adverse Reaction Unknown Nausea and Vomiting 03/16/22 Yes Physical Exam Physical Exam Constitutional: Well developed, well nourished, no acute distress, non-toxic appearance. [] HENT: Normocephalic, atraumatic, bilateral external ears normal, oropharynx moist, no oral exudates, nasal congestion Eyes: conjunctiva normal, no discharge. [] Neck: Normal range of motion, no tenderness, supple, no stridor. [] Cardiovascular:Heart rate regular rhythm, no murmur [] Lungs & Thorax: Bilateral breath sounds clear to auscultation [] Neurologic: Alert and oriented X 3, normal motor function, normal sensory function, no focal deficits noted. [] Psychologic: Affect normal, judgement normal, mood normal. [] EKG EKG [] Radiology/Procedures Radiology/Procedures [] Heart Score C/O Chest Pain: No Risk Factors: Risk Factors: DM, Current or recent (<one month) smoker, HTN, HLP, family history of CAD, obesity. Risk Scores: Risk Factors: DM, Current or recent (<one month) smoker, HTN, HLP, family history of CAD, obesity. Course & Med Decision Making Course & Med Decision Making Patient is a 31-year-old female presents with nasal congestion Vital signs nonconcerning. Physical exam noted above. Given steroids and antihistamine. Discussed symptom treatment at home Advised to follow-up with primary care physician. Gave return precautions to the ED Patient grateful, verbalized understanding and agreed with plan of discharge [] Dragon Disclaimer Dragon Disclaimer This electronic medical record was generated, in whole or in part, using a voice recognition dictation system. Departure Departure: Impression: Primary Impression: Nasal congestion Disposition: HOME / SELF CARE / HOMELESS Condition: STABLE Referrals: JR GARCIA (PCP) Patient Instructions: Allergic Rhinitis Additional Instructions: Thank you for coming into the emergency department tonight and allowing us to take care of you. Please read the attached information carefully to go over things we discussed. Please follow-up in the morning with your primary care physician update on your ED visit and set up a follow-up. Please come back with new or concerning symptoms as discussed. SHEMAR SANZ MD March 16, 2022 05:39
[2022-03-16] MEDS ORDERED: DEXAMETHASONE SOD PHOS 10 MG/ML VIAL. IM ONE (06:30)
[2022-03-16] MEDS ORDERED: diphenhydrAMINE 50 MG/ML VIAL IM ONE (06:30)
== END 2022-03-16 06:00 | disposition home or self-care (01) ==
LOC: ER 05:25
DX: R09.81 Nasal congestion (principal); J45.909 Unspecified asthma, uncomplicated; G43.909 Migraine, unspecified, not intractable, without status migrainosus; F41.9 Anxiety disorder, unspecified; F31.9 Bipolar disorder, unspecified; Z88.5 Allergy status to narcotic agent
CPT/HCPCS: 96372; 99284; J1100; J1200

== ENCOUNTER 2022-03-25 02:51 | Emergency (ER) | payer MEDICAID ==
[~2022-03-25] VITALS: Ht 154.9 cm; Wt 63.7 kg
--- NOTE | 2022-03-25 03:24 | PHYS DOC ---
Past History Past Medical History: Anxiety, Asthma, Bipolar, Depression, Migraines Additional Past Medical Histor: nasal polyps, chronic sinus infections Past Surgical History: Smoking: Non-smoker Alcohol Use: None Drug Use: Marijuana General Adult HPI: HPI: " ..I need steroids for my asthma .. and nasal congestion.. " " The flonase and flovent are not working .. when I get this bad I usually need steroids.. " Patient is a 31 year old female who presents with above hx and complaints of congestion with asthma cough. Patient was seen here for similar type pres entation on 03/16/22. Patient reports no improvement of her asthma cough or nasal congestion. Patient does have past history of anxiety, asthma, bipolar, depression, migraines, nasal polyps, chronic sinus infections,, chronic seasonal allergy congestion. Does have a past medical history of C-sections. Patient does use marijuana. Patient denies any fever or chills. Patient denies any specific ill contacts. No recent travel. No sick ill contacts. Patient normally follows with Dr. Garcia Review of Systems: Review of Systems: Constitutional: Denies fever or chills Eyes: Denies change in visual acuity HENT: Complains of severe nasal congestion postnasal drainage Respiratory: Planes of nonproductive cough and wheezing Cardiovascular: Denies chest pain or edema GI: Denies abdominal pain, nausea, vomiting, bloody stools or diarrhea : Denies dysuria Musculoskeletal: Denies back pain or joint pain Integument: Denies rash Neurologic: Denies headache, focal weakness or sensory changes Endocrine: Denies polyuria or polydipsia Lymphatic: Denies swollen glands Psychiatric: Denies depression or anxiety Family History: Family History: Noncontributory to presentation Current Medications: Current Meds: See nursing for home meds Allergies: Allergies: Allergies Coded Allergies Type Severity Reaction Last Updated Verified codeine Adverse Reaction Mild Nausea and Vomiting 03/16/22 Yes Physical Exam: PE: Constitutional: Moderate acute distress, non-toxic appearance. [] HENT: Normocephalic, atraumatic, bilateral external ears normal, oropharynx moist, no oral exudates, nose swollen turbinates, nasal polyps, rhinorrhea c lear, and postnasal drainage Eyes: PERRLA, EOMI, conjunctiva normal, no discharge. [] Neck: Normal range of motion, no tenderness, supple, no stridor. [] Cardiovascular:Heart rate regular rhythm, no murmur [] Lungs & Thorax: Bilateral breath sounds to apex with few scattered wheezes on auscultation [] Abdomen: Bowel sounds normal, soft, no tenderness, no masses, no pulsatile masses. Surgery scar. Skin: Warm, dry, no erythema, no rash. [] Back: No tenderness, no CVA tenderness. [] Extremities: No tenderness, no cyanosis, no clubbing, ROM intact, no edema. [] Neurologic: Alert and oriented X 3, normal motor function, normal sensory function, no focal deficits noted. [] Psychologic: Affect very anxious about her congestion, judgement normal, mood normal. [] EKG: EKG: [] Radiology/Procedures: Radiology/Procedures: [] Heart Score: C/O Chest Pain: N/A Risk Factors: Risk Factors: DM, Current or recent (<one month) smoker, HTN, HLP, family history of CAD, obesity. Risk Scores: Score 0 - 3: 2.5% MACE over next 6 weeks - Discharge Home Score 4 - 6: 20.3% MACE over next 6 weeks - Admit for Clinical Observation Score 7 - 10: 72.7% MACE over next 6 weeks - Early Invasive Strategies Course & Med Decision Making: Course & Med Decision Making Pertinent Labs and Imaging studies reviewed. (See chart for details) Recommended patient continue her Flonase and Flovent sprays. Patient was given a Depo of Medrol 40 mg in the ED. Patient follow-up with Dr. Farr. Patient consider possible polypectomy of nasal polyps. Consider follow-up with ENT. Continue her her normal asthma meds Impression: 1. Mild Asthma exacerbation 2. Nasal polyps 3. Seasonal allergy exacerbation [] Dragon Disclaimer: Ronyon Disclaimer: This electronic medical record was generated, in whole or in part, using a voice recognition dictation system. Departure Departure: Referrals: JR GARCIA (PCP) Claire Disclaimer This chart was dictated in whole or in part using Voice Recognition software in a busy, high-work load, and often noisy Emergency Department environment. It may contain unintended and wholly unrecognized errors or omissions. SHORTY CESPEDES MD March 25, 2022 03:24
[2022-03-25 03:27] VITALS: BP 126/76
[2022-03-25] MEDS ORDERED: OXYMETAZOLINE 0.05% NASAL SPRAY 30ML BOTTLE. NS ONE (05:30)
[2022-03-25] MEDS ORDERED: methylPREDNISolone ACETATE 40 MG/ML VIAL. IM ONE (05:30)
== END 2022-03-25 05:37 | disposition home or self-care (01) ==
LOC: ER 02:51
DX: J45.901 Unspecified asthma with (acute) exacerbation (principal); J33.9 Nasal polyp, unspecified
CPT/HCPCS: 96372; 99283; J1030